=== PATIENT | female | born 1945 ===

== ENCOUNTER 2016-03-15 11:38 | Inpatient (IN) | payer OTHER ==
[2016-03-22] MEDS ORDERED: traZODone 50 MG TAB PO PRN (16:07)
[2016-03-22] MEDS ORDERED: BISACODYL 10 MG SUPP PR PRN (16:07)
[2016-03-22] MEDS ORDERED: oxyCODONE IR 5 MG TAB PO PRN (16:07)
[2016-03-22] MEDS: PHENAZOPYRIDINE HCL 100 MG TAB PO SCH (18:49)
--- NOTE | 2016-03-22 19:06 | PDOREHIP ---
Admission [facility] - Admission - 3 Day Assessment Period Admission Date/Day 1: 03/22/16 Day 2: 03/23/16 Day 3: 03/24/16 - Active Diagnoses Comorbidities and Co-existing Conditions at Admission: 50380. None of the Above - Skin Conditions Unhealed Pressure Ulcer (1 or more/Stage 1 or >)-Admission: 0. No
--- NOTE | 2016-03-22 19:25 | GHP ---
[f rep st] HISTORY AND PHYSICAL HISTORY AND PHYSICAL, POST ADMISSION PHYSICIAN EVALUATION AND TREATMENT PLAN DATE OF ADMISSION: 03/22/2016 REFERRING PHYSICIAN: Dr. Raymond DATE OF EVALUATION: 03/22/2016 TIME OF EVALUATION: 1615. REFERRING FACILITY: [facility]. CONSULTING PHYSICIANS: She was seen by Neurology, Physical Medicine Rehabilitation, nephrology and Oncology. 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 IMPAIRMENT GROUP: 3.4. ETIOLOGIC DIAGNOSIS: Guillain-[place] syndrome. DATE OF ONSET: 03/10/2016. HISTORY OF PRESENT ILLNESS: Mrs. Bucio developed progressive weakness of the extremities following a likely viral syndrome in February with upper respiratory symptoms and diarrhea. She presented to [facility] with numbness, weakness and unsteadiness; cardiac and pulmonary evaluation was negative and she was sent home. Symptoms progressed, and she went to [facility] where she received 5 doses of IVIG from March 11 through March 15, and reports that she has had gradual improvement in her strength and in her sensation. Her hospital stay was complicated by the finding of a spiculated left upper lobe lung mass. She had a biopsy done by Interventional Radiology, and the pathology result is adenocarcinoma. This is not felt to be a likely cause of a paraneoplastic polyradiculoneuropathy. 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 She had a small pneumothorax after the lung biopsy , but this resolved. She developed hyponatremia and had a diagnosis of syndrome of inappropriate ADH secretion which has resolved fluid restriction, initially was 1 L per day and then it was liberalized to 1.25 L per day and on her discharge orders it has 1.25 to 1.5 L per day. As she was immobilized and unable to make transfers initially, she had a urinary catheter and she developed a catheter-associated urinary tract infection with MRSA growing in the culture. She was initially on nitrofurantoin , but this has been changed to doxycycline. She has a history of hypertension. Her antihypertensive of lisinopril was increased from 20 mg to 40 mg per day and amlodipine was added eventually to 10 mg per day during her hospitalization. LABORATORY AND IMAGING STUDIES: Done during her hospitalization included imaging to evaluate for a paraneoplastic syndrome. Other than the nodule in her lung, imaging was normal including MRI of the brain and spinal cord, and CT of the chest and abdomen and pelvis. 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 Her renal function was otherwise within normal limits. PRECAUTIONS: She is a fall risk. ACTIVE COMORBIDITIES: 1. She has no active tier 1 or tier 2 comorbidities. 2. She has the tier 3 comorbidity of MRSA, though it was a urinary tract infection and not septicemia. PAST MEDICAL HISTORY: 1. Hypertension. 2. Dyslipidemia. PAST SURGICAL HISTORY: She has had foot surgery, and she has had vein stripping. PRE-HOSPITAL MEDICATIONS: 1. Lisinopril 20 mg p.o. daily. 2. Lovastatin 20 mg p.o. q.h.s. ADMISSION MEDICATIONS: 1. Trazodone 50 mg p.o. q.h.s. 2. Oxycodone 5 mg p.o. q.6 hours p.r.n. 3. Docusate sodium 100 mg p.o. b.i.d. p.r.n. 4. Cyclobenzaprine 10 mg p.o. t.i.d. p.r.n. 5. Bisacodyl 10 mg [place] daily p.r.n. 6. Phenazopyridine 100 mg p.o. t.i.d. after meals. 7. Melatonin 9 mg p.o. q.h.s. 8. Lovastatin 20 mg p.o. q.h.s. 9. Lisinopril 40 mg p.o. daily. 10. Lidocaine patch to left shoulder daily. 11. Amlodipine 10 mg p.o. daily. 12. Doxycycline 100 mg p.o. daily. ALLERGIES: Listed to penicillins and sulfonamide antibiotics. FAMILY HISTORY: On her mother's side is notable for longevity, her mother at 94. Her father had alcoholism and in his 60s. PSYCHOSOCIAL HISTORY: She is . She lives with her in a trilevel house. She has 3 children who live locally and with whom she has a close relationship. 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 She is a lifelong nonsmoker and nondrinker, though she has had exposure to secondhand smoke. REVIEW OF SYSTEMS: She denies cough, dyspnea, difficulty breathing or difficulty swallowing. She has no vision changes. She reports very little strength in her legs, saying that they are "like rubber" though strength has been returning. She has better upper extremity strength, but her arms are weak. She had lack of sensation from her knees down, but sensation has recovered. She has reduced sensation over the feet and distal lower legs, and she reports numbness on the bottoms of her feet. She reports left shoulder pain , otherwise, she denies being in pain. She denies palpitations. She has had some diarrhea; this was preceded by constipation which was resolved with laxatives. She had dysuria after the catheter was withdrawn, but no longer has dysuria. She denies fevers or chills. She denies joint pain or swelling. She denies skin rash or skin breakdown. Otherwise, a 10-point review of systems of systems is negative. PHYSICAL EXAM: VITAL SIGNS: Not yet recorded in the chart. Her weight is 78.5 kg for a body mass index of 27.1. GENERAL: This is a well-nourished and well-developed overweight woman who appears her chronologic age, cooperative and in no acute distress. HEENT: Extraocular movements are intact. Pupils are equal, round, and reactive to light and accommodation. Mucous membranes are moist. Dentition is in good condition. NECK: Supple. HEART: Regular rate and rhythm with no murmurs, rubs or gallops. LUNGS: Clear to auscultation bilaterally. ABDOMEN: Soft, nontender, nondistended with normoactive bowel sounds and no hepatosplenomegaly. EXTREMITIES: There is no cyanosis, clubbing or edema. Radial and dorsalis pedis pulses are 2+ bilaterally. NEUROLOGIC: She is alert and oriented x3. Cranial nerves 2-12 are grossly intact. In terms of motor strength, her shoulder shrug is 5/5. Her biceps are 3 to 4/5. Her triceps are 2 to 3/5. Her hip flexors are 4/5. Her quadriceps extension is 3/5 on the left and 2/5 on the right. Her hamstrings are 2/5 bilaterally. She has preserved core strength and is able to arise from supine to seated with minimal assistance. Regarding sensation, it is intact to light touch, but reduced in her lower legs and absent on the bottoms of her feet. CURRENT LEVEL OF FUNCTION: Per the preadmission screen regarding diet, feeding and swallowing, she was tolerating a regular diet. For grooming, she could brush her teeth with set up and a foam handle on the toothbrush. For bathing and dressing, she required assistance. For toileting, she required minimal to maximal assistance of one person. For bladder, she had a Jiménez catheter at the time of her evaluation. Regarding bowel, she was noted to be at risk for constipation. For bed mobility, she needed minimal assistance. For transfers, moderate to maximal assistance of 2 people using a Prachi Stedy Device to transfer from bed to chair. Without the Prachi Stedy, she needed total assistance to prevent knee buckling. For balance, she needed maximal assistance for standing. Endurance was noted to be fair to good. IMPRESSION: Mrs. Bucio is a 71-year-old woman who had progressive weakness of the extremities and loss of sensation following a viral infection involving upper respiratory symptoms and diarrhea in February. Initial evaluation at [facility] was negative for cardiac or pulmonary disease, and she was sent home. Her condition progressed, and she presented at the 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 Evaluation for a possible paraneoplastic etiology revealed a spiculated lung nodule which has been biopsied and revealed adenocarcinoma. Hospital complications included a pneumothorax caused by the lung biopsy and catheter-associated urinary tract infection with MRSA. She had inadequate control of hypertension and amlodipine was added and lisinopril titrated to achieve better blood pressure control. She had SIADH of unclear etiology, which has resolved with fluid restriction. She remains on a fluid restriction. She is appropriate for inpatient rehabilitation as she has been regaining strength. She will benefit from physical and occupational therapy to optimize her mobility and activities of daily living. Additionally, she will require close medical management by the physician for changes in neurological and respiratory function, treatment of urinary tract infection, prevention of DVT or pulmonary embolus; and she will require specialized nursing care due to risk for skin issues, bowel and bladder management, medication education and fall risk. Her goal is to return home with her family and supportive services. For a safe discharge, it is anticipated she will achieve modified independence for eating and grooming, set up and minimal assistance for dressing, and standby assist for bed mobility. She may require contact guard for transfers, and ambulation for short distances. It is anticipated that she will use a wheelchair for her primary means of mobility, and she will require assistance for household management, meal preparation and shopping. She will have therapy with Physical Therapy and Occupational Therapy on a modified schedule for 60-90 minutes for each discipline per day, on 5-7 days a week, do a total 15 hours a week of therapy or more. Her expected duration of stay is 14-21 days. It is expected that upon discharge she will continue to benefit from home health services, including nursing, occupational therapy and physical therapy. ASSESSMENT AND PLAN: 1. 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 Status post IVIG. She is recovering her strength, but is still quite debilitated. Physical therapy and occupational therapy to optimize mobility and activities of daily living. 2. Methicillin-resistant Staphylococcus aureus urinary tract infection. Will continue antibiotics as ordered out of the hospital for a total of 10 days or through 03/30/2016. Observe for signs or symptoms of continuing infection. It is of note that the urine culture showed the MRSA to also be susceptible to nitrofurantoin. She has normal renal function, this might be a better choice. If she shows signs of not resolving the infection, she will be switched to nitrofurantoin. 3. Hyponatremia, on fluid restriction. Will repeat a BMP in the morning. 4. Hypertension. Continue her antihypertensive medications and follow her blood pressure. 5. Dyslipidemia. Continue her statin therapy. 6. Left shoulder pain. Unclear etiology. May be related to denervation. I will continue lidocaine patches. Will continue oxycodone as ordered at the hospital. Will add acetaminophen. Cyclobenzaprine has been prescribed, unclear what role that plays in her symptom management. 7. Insomnia. She has been treated with melatonin which has been titrated from 3 mg to 9 mg. Additionally, she has had the addition of trazodone. She reports continued poor sleep. She may sleep better simply by being out of the hospital and in the rehabilitation unit where she will be disturbed less at night. 8. DVT prophylaxis will be continued with enoxaparin until her mobility increases. 9. CODE STATUS was discussed with the patient and her , and they desire to continue full resuscitation should she be found unconscious with no pulse and no breathing. 10. Followup is currently scheduled with Oncology at the [facility] on 04/01/2016. However, she and her reported that she follows up 1 or 2 weeks later, this would be acceptable to the oncology team. /[id number]/MODL MTDD
[2016-03-22] MEDS: ACETAMINOPHEN 650 MG/20.3 ML UDCUP PO PRN (20:28)
[2016-03-22] MEDS: DOXYCYCLINE HYCLATE 100 MG CAP/TAB PO SCH (20:32)
[2016-03-22] MEDS: MELATONIN 3 MG TAB PO SCH (20:34)
[2016-03-22] MEDS ORDERED: NON-FORMULARY NEW DRUG (Lovastatin [Lovastatin] 20 MG) PO SCH (21:00)
[2016-03-22] MEDS ORDERED: NON-FORMULARY NEW DRUG (Doxycycline Hyclate [Doxycycline Hyclate] 100 MG) PO SCH (21:00)
[2016-03-23] MEDS: ACETAMINOPHEN 650 MG/20.3 ML UDCUP PO PRN ×2 (04:01→21:03)
[2016-03-23 08:50] LABS: % IMMATURE GRANULYOCYTES 0.5 % (0.0-1.1); ABSOLUTE IMMATURE GRANULOCYTES 0.04 10^3/uL (0.00-0.10); ADD DIFF? NO; ADD MORPH? NO; ADD SCAN? NO; ATYPICAL LYMPHOCYTE FLAG 10 (0-99); FRAGMENT RBC FLAG 0 (0-99); HEMATOCRIT 38.2 % (38.0-47.0); LEFT SHIFT FLG 0 (0-99); LIPEMIA HEMOLYSIS FLAG 90 (0-99); MEAN CELL HEMOGLOBIN 31.5 pg (27.9-34.1); MEAN CELL VOLUME 92.5 fL (81.5-99.8); MEAN PLATELET VOLUME 8.6 fL (8.7-11.7); PLATELET CLUMPS FLAG 0 (0-99); PLATELET COUNT 308 10^3/uL (150-400); RED BLOOD CELL COUNT 4.13 10^6/uL (4.18-5.33); RED CELL DISTRIBUTION WIDTH 13.2 % (11.5-15.2)
[2016-03-23 09:03] LABS: ALANINE AMINOTRANSFERASE 69 IU/L (9-52); ALKALINE PHOSPHATASE 79 IU/L (38-126); ANION GAP 9 mEq/L (8-16); ASPARTATE AMINOTRANSFERASE 38 IU/L (14-46); BILIRUBIN,TOTAL 0.7 mg/dL (0.1-1.4); CALCIUM 8.3 mg/dL (8.5-10.4); CARBON DIOXIDE 25 mEq/l (22-31); CHLORIDE 104 mEq/L (97-110); CREATININE 0.5 mg/dL (0.6-1.0); GLOMERULAR FILTRATION RATE > 60; GLUCOSE 95 mg/dL (70-100); POTASSIUM 4.4 mEq/L (3.5-5.2); SODIUM 138 mEq/L (134-144); TOTAL PROTEIN 7.4 g/dL (6.3-8.2)
[2016-03-23] MEDS: LIDOCAINE 5% 1 EA PATCH TD SCH (09:49)
[2016-03-23] MEDS: PHENAZOPYRIDINE HCL 100 MG TAB PO SCH ×3 (09:50→18:26)
[2016-03-23] MEDS: DOXYCYCLINE HYCLATE 100 MG CAP/TAB PO SCH ×2 (09:50→21:03)
[2016-03-23] MEDS: PRAVASTATIN SODIUM 20 MG TAB PO SCH (09:51)
[2016-03-23] MEDS: ENOXAPARIN 40 MG/0.4 ML SYR SC SCH (09:51)
[2016-03-23] MEDS: LISINOPRIL 20 MG TAB PO SCH (09:51)
--- NOTE | 2016-03-23 12:57 | SOAPPROG ---
SOAP Progress Note Assessment/Plan: Assessment: 71yo female with GBS: * Debility 2/2 GBS: stable s/p IVIG, initiate multi-disp eval and tx * MRSZ UTI: Cont ABX's through 03/30. Cont isolation precautions * Hyponatremia: 138 this morning, will loosen fluid restrictions (1500ml to 2000ml) and recheck. * Nutrition: Albumin low at 3.0, monitor intake, supplements as needed. * HTN: Stable, cont current meds * Dyslipidemia: cont current meds * L shoulder Pain: status quo, trial of alternative modalities. * Insomnia: * DVT PPX: Cont enoxaparin. Plan: Initiate therapies, Initial staffing to follow 03/23/16 12:59 Subjective: Feeling stronger No new problems or C/O's No F/C/CP/SOB/N/V/D/C slept poorly, couldn't get comfortable Objective: Vital Signs Temp Pulse Resp BP Pulse Ox 37.0 C 120 H 16 124/78 H 93 03/23/16 07:03 03/23/16 11:00 03/23/16 07:03 03/23/16 11:00 03/23/16 07:03 Laboratory Results 03/23/16 07:30 03/23/16 07:30 03/22/16 03/23/16 03/24/16 05:59 05:59 05:59 Intake Total 990 730 Output Total 1200 675 Balance -210 55 Physical Exam - Physical Exam General Appearance: alert, no apparent distress Neck: supple Respiratory: lungs clear Cardiac/Chest: regular rate, rhythm Skin: normal color, warm/dry Extremities: No pedal edema, No calf tenderness Neuro/Psych: alert, normal mood/affect, oriented x 3, motor weakness, No cognition abnormalities ICD10 Worksheet Patient Problems: Problems Problem Status Diagnosed Adenocarcinoma of lung Acute Hyponatremia Acute Inflammatory polyradiculoneuropathy Acute MRSA (methicillin resistant Staphylococcus aureus) Acute UTI (urinary tract infection) Acute
[2016-03-23] MEDS ORDERED: ZOLPIDEM TARTRATE 5 MG TAB PO SCH (21:00)
[2016-03-23] MEDS: MELATONIN 3 MG TAB PO SCH (21:03)
[2016-03-24] MEDS: ACETAMINOPHEN 650 MG/20.3 ML UDCUP PO PRN (02:17)
[2016-03-24] MEDS: CYCLOBENZAPRINE 10 MG TAB PO PRN (02:17)
[2016-03-24] MEDS: LISINOPRIL 20 MG TAB PO SCH (09:38)
[2016-03-24] MEDS: DOXYCYCLINE HYCLATE 100 MG CAP/TAB PO SCH ×2 (09:38→20:05)
[2016-03-24] MEDS: PRAVASTATIN SODIUM 20 MG TAB PO SCH (09:40)
[2016-03-24] MEDS: PHENAZOPYRIDINE HCL 100 MG TAB PO SCH ×3 (09:40→20:04)
[2016-03-24] MEDS: LIDOCAINE 5% 1 EA PATCH TD SCH (09:40)
[2016-03-24] MEDS: ENOXAPARIN 40 MG/0.4 ML SYR SC SCH (09:40)
--- NOTE | 2016-03-24 16:58 | SOAPPROG ---
SOAP Progress Note Assessment/Plan: Assessment: 71yo female with GBS: * Debility 2/2 GBS: Improving s/p IVIG, cont multi-disp eval and tx * MRSA UTI: Cont ABX's through 03/30. Cont isolation precautions. NO active Sx /SX of UTI * Urinary retention: Improving. Voided 550cc with 18 cc PVR this am. * N Bowel: bowel incontinence 2/2 diminished sensation. * Hyponatremia: 138 03/23, loosened fluid restrictions (1500ml to 2000ml) 03/23. will recheck Na 03/25. * Nutrition: Albumin low at 3.0, monitor intake, supplements as needed. * HTN: Had syncopal episode this am, responded by being place back into bed. Pt herself declined the 40 mg Lisinipril and instead took her routine 20 mg dose. Will decrease her BP meds back to pre hospital doses, including reducing lisinopril 40 to 20 mg/day. * Dyslipidemia: cont current meds * L shoulder Pain: status quo, trial of alternative modalities. * Insomnia: Trial of low dose ambien helpful, but only for 4 hours, will try 10 mg dose. * DVT PPX: Cont enoxaparin. Plan: Cont therapies, Initial staffing to follow 03/24/16 16:54 Subjective: Resting comfortably Given further education regarding Dx and Px. No F/C/CP/SOB/N/V/D/C No urinary frequency/urgency/pain Objective: Vital Signs Temp Pulse Resp BP Pulse Ox 36.9 C 100 18 108/66 92 03/24/16 08:15 03/24/16 08:15 03/24/16 08:15 03/24/16 09:38 03/24/16 08:15 Laboratory Results 03/23/16 07:30 03/23/16 07:30 03/23/16 03/24/16 03/25/16 05:59 05:59 05:59 Intake Total 990 2130 Output Total 1200 1525 Balance -210 605 Physical Exam - Physical Exam General Appearance: alert, no apparent distress Neck: supple Respiratory: lungs clear Cardiac/Chest: regular rate, rhythm Abdomen: normal bowel sounds, soft Skin: normal color, warm/dry, No rash Extremities: No pedal edema, No calf tenderness Neuro/Psych: alert, normal mood/affect, oriented x 3, abnormal gait, motor weakness (distal extremities, fairly symmetrically), sensory deficit ( diminished JPS), other (no acute changes), No cognition abnormalities, No speech abnormalities ICD10 Worksheet Patient Problems: Problems Problem Status Diagnosed Adenocarcinoma of lung Acute Hyponatremia Acute Inflammatory polyradiculoneuropathy Acute MRSA (methicillin resistant Staphylococcus aureus) Acute UTI (urinary tract infection) Acute
[2016-03-24] MEDS: MELATONIN 3 MG TAB PO SCH (20:05)
[2016-03-24] MEDS: ZOLPIDEM TARTRATE 5 MG TAB PO SCH (22:24)
[2016-03-25 09:28] LABS: ANION GAP 12 mEq/L (8-16); CALCIUM 8.4 mg/dL (8.5-10.4); CARBON DIOXIDE 23 mEq/l (22-31); CHLORIDE 105 mEq/L (97-110); CREATININE 0.5 mg/dL (0.6-1.0); GLOMERULAR FILTRATION RATE > 60; GLUCOSE 83 mg/dL (70-100); POTASSIUM 4.6 mEq/L (3.5-5.2); SODIUM 140 mEq/L (134-144)
[2016-03-25] MEDS: PHENAZOPYRIDINE HCL 100 MG TAB PO SCH ×3 (09:45→18:21)
[2016-03-25] MEDS: PRAVASTATIN SODIUM 20 MG TAB PO SCH (09:45)
[2016-03-25] MEDS: LIDOCAINE 5% 1 EA PATCH TD SCH (09:45)
[2016-03-25] MEDS: DOXYCYCLINE HYCLATE 100 MG CAP/TAB PO SCH ×2 (09:46→21:01)
[2016-03-25] MEDS: ENOXAPARIN 40 MG/0.4 ML SYR SC SCH (09:46)
[2016-03-25] MEDS: LISINOPRIL 20 MG TAB PO SCH (09:46)
--- NOTE | 2016-03-25 13:07 | SOAPPROG ---
SOAP Progress Note Assessment/Plan: Assessment/ plan: 71yo female with GBS: * Debility 2/2 GBS: Impaired mobility and self care. Improving s/p IVIG, cont multi-disp eval and tx. PT for impaired mobility, OT for impaired self care. Cognitively with no new concerns. Team meeting today (documented separately) occurred, DC date extended slightly as she will need to ascend stairs to reach the living floor of her home. No barriers to participation except for orthostatic hypotension. Amlodipine (new medication) held this AM, to be stopped. Pt given handout on GBS and encouraged to follow up with questions. * MRSA UTI: Cont ABX's through 03/30. Cont isolation precautions. No active Sx /SX of UTI * Urinary retention: Was improving, however had PVR of 300+ overnight. Continue to monitor as symptoms improve. Plan to continue voiding trial through tomorrow and re-evaluate. * N Bowel: bowel incontinence 2/2 diminished sensation, continue to monitor and schedule bowel program. * Hyponatremia: 138 03/23, loosened fluid restrictions (1500ml to 2000ml) 03/23. Improved on 03/25 to 140. Given the concerns of orthostatic hypotension, plan to DC the fluid restriction and recheck Na on 03/27. * Nutrition: Albumin low at 3.0, monitor intake, supplements as needed. * HTN: Will continue the home dose of lisinopril but stop the amlodipine (new medication). Will check orthostatic vital signs. * Dyslipidemia: cont current meds * L shoulder Pain: status quo, trial of alternative modalities. * Insomnia: Slept well on 10 mg dose of ambien, plan to continue for now. * DVT PPX: Cont enoxaparin until ambulatory or DC. * Lung nodule: to follow up with oncology on dc. Monitor clinically. * Adjustment to disabilities: pt notes some struggling with emotions, but not impairing her ability to participate in therapies. She is engaging with SW on the issue, and feels supported. no SI. 03/25/16 12:59 03/25/16 13:07 03/25/16 13:11 Subjective: No acute events overnight. She had increased PVR after voiding, had straight cath. Overall she feels her neurological status is similar, not much improvement in upper limb strength or sensation over the past few days, but no decrement either. Lower limbs seem to be improving. However, she notes great improvements since diagnosis, especially in strength. She is struggling with emotions around adjustment to her current disabilities, wants to regain her active lifestyle. Reported to nursing some ongoing orthostasis and reported that she was not on amlodipine as an outpatient. Slept well on ambien, no pain, no neurological worsening of strength or sensation. Reports that her family is supportive. Objective: Vital Signs Temp Pulse Resp BP Pulse Ox 37.0 C 87 18 112/77 91 L 03/25/16 08:00 03/25/16 08:00 03/25/16 08:00 03/25/16 09:46 03/25/16 08:00 Laboratory Results 03/23/16 07:30 03/25/16 05:10 03/24/16 03/25/16 03/26/16 05:59 05:59 05:59 Intake Total 2130 200 620 Output Total 1525 875 450 Balance 605 -675 170 - Time Spent With Patient Time Spent With Patient: 15 min - Pending Discharge Pending Discharge Within 24 Hours: No Pending Discharge Within 48 Hours: No Physical Exam - Physical Exam General Appearance: alert, no apparent distress EENT: No scleral icterus (R), No scleral icterus (L), No photophobia Respiratory: normal breath sounds, No respiratory distress, No accessory muscle use, No stridor, No wheezing Cardiac/Chest: normal peripheral pulses, regular rate, rhythm, No edema, No bradycardia, No tachycardia Abdomen: non-tender, soft, No distended Skin: normal color, warm/dry Extremities: normal range of motion (upper limbs), No pedal edema, No swelling Neuro/Psych: alert, motor weakness (4/5 bilat symmetric FF, EF, SA. Not ambulated, in WC.), other (Normal affect, variable mood, no SI) ICD10 Worksheet Patient Problems: Problems Problem Status Diagnosed Adenocarcinoma of lung Acute Hyponatremia Acute Inflammatory polyradiculoneuropathy Acute MRSA (methicillin resistant Staphylococcus aureus) Acute UTI (urinary tract infection) Acute
[2016-03-25] MEDS: MELATONIN 3 MG TAB PO SCH (21:01)
[2016-03-25] MEDS: ZOLPIDEM TARTRATE 5 MG TAB PO SCH (22:26)
[2016-03-26] MEDS: ENOXAPARIN 40 MG/0.4 ML SYR SC SCH (08:42)
[2016-03-26] MEDS: LIDOCAINE 5% 1 EA PATCH TD SCH (08:42)
[2016-03-26] MEDS: DOXYCYCLINE HYCLATE 100 MG CAP/TAB PO SCH ×2 (08:42→22:50)
[2016-03-26] MEDS: PHENAZOPYRIDINE HCL 100 MG TAB PO SCH ×2 (08:42→15:39)
[2016-03-26] MEDS: PRAVASTATIN SODIUM 20 MG TAB PO SCH (08:43)
--- NOTE | 2016-03-26 14:07 | SOAPPROG ---
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 Improving s/p IVIG. Initial FIM 57 on 03/25/16. Continue multi-disp eval and tx. PT for impaired mobility, OT for impaired self care. Cognitively with no new concerns. Will need to ascend stairs to reach the living floor of her home. * Orthostatic hypotension. Amlodipine (new medication) stopped 03/25/16. * MRSA UTI: Cont ABX's through 03/30. Cont isolation precautions. No active Sx /SX of UTI * Urinary retention: Was improving, however had PVR of 300+ overnight. Continue to monitor as symptoms improve. Plan to continue voiding trial through tomorrow and re-evaluate. * N Bowel: bowel incontinence 2/2 diminished sensation, continue to monitor and schedule bowel program. * Hyponatremia: 138 03/23, loosened fluid restrictions (1500ml to 2000ml) 03/23. Improved on 03/25 to 140. Given the concerns of orthostatic hypotension, plan to DC the fluid restriction and recheck Na on 03/27. * Nutrition: Albumin low at 3.0, monitor intake, supplements as needed. * HTN: Will continue the home dose of lisinopril but stop the amlodipine (new medication). Will check orthostatic vital signs. * Dyslipidemia: cont current meds * L shoulder Pain: status quo, trial of alternative modalities. * Insomnia: Slept well on 10 mg dose of ambien, plan to continue for now. * DVT PPX: Cont enoxaparin until ambulatory or DC. * Lung nodule: to follow up with oncology on dc. Monitor clinically. * Adjustment to disabilities: pt notes some struggling with emotions, but not impairing her ability to participate in therapies. She is engaging with SW on the issue, and feels supported. no SI. Anticipated discharge home 04/15/16. 03/26/16 14:00 Objective: Vital Signs Temp Pulse Resp BP Pulse Ox 37 C 110 H 18 98/69 L 95 03/26/16 09:00 03/26/16 09:00 03/26/16 09:00 03/26/16 09:00 03/26/16 09:00 Laboratory Results 03/23/16 07:30 03/25/16 05:10 01/03/26/16 03/27/16 05:59 05:59 05:59 Intake Total 200 820 Output Total 872 7814 Balance -675 1102 ICD10 Worksheet Patient Problems: Problems Problem Status Diagnosed Adenocarcinoma of lung Acute Hyponatremia Acute Inflammatory polyradiculoneuropathy Acute MRSA (methicillin resistant Staphylococcus aureus) Acute UTI (urinary tract infection) Acute
[2016-03-26] MEDS: LISINOPRIL 20 MG TAB PO SCH (15:38)
[2016-03-26] MEDS: ZOLPIDEM TARTRATE 5 MG TAB PO SCH (22:50)
[2016-03-26] MEDS: MELATONIN 3 MG TAB PO SCH (22:50)
[2016-03-27] MEDS: DOXYCYCLINE HYCLATE 100 MG CAP/TAB PO SCH ×2 (09:26→22:41)
[2016-03-27] MEDS: LIDOCAINE 5% 1 EA PATCH TD SCH (09:26)
[2016-03-27] MEDS: PRAVASTATIN SODIUM 20 MG TAB PO SCH (09:26)
[2016-03-27] MEDS: ENOXAPARIN 40 MG/0.4 ML SYR SC SCH (09:26)
[2016-03-27] MEDS: LISINOPRIL 20 MG TAB PO SCH (11:01)
--- NOTE | 2016-03-27 11:16 | SOAPPROG ---
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 Improving s/p IVIG. Initial FIM 57 on 03/25/16. Continue multi-disp eval and tx. PT for impaired mobility, OT for impaired self care. Cognitively with no new concerns. Will need to ascend stairs to reach the living floor of her home. * Orthostatic hypotension. Amlodipine (new medication) stopped 03/25/16; lisinopril stopped 03/26/15. Unclear why hypotensive but normotensive off meds. Continue to monitor blood pressure. * MRSA UTI: Cont ABX's through 03/30. Cont isolation precautions. No active Sx /SX of UTI * Urinary retention: Voiding completely with assistance of nursing. * N Bowel: bowel incontinence 2/2 diminished sensation, continue to monitor and schedule bowel program. * Hyponatremia: resolved, no fluid restriction. * Nutrition: Albumin low at 3.0, monitor intake, supplements as needed. * Dyslipidemia: cont current meds * L shoulder Pain: status quo, trial of alternative modalities. * Insomnia: Slept well on 10 mg dose of ambien, plan to continue for now. * DVT PPX: Cont enoxaparin until ambulatory or DC. * Lung nodule: to follow up with oncology on dc. Monitor clinically. * Adjustment to disabilities: pt notes some struggling with emotions, but not impairing her ability to participate in therapies. She is engaging with SW on the issue, and feels supported. no SI. Anticipated discharge home 04/15/16. 03/27/16 11:16 Subjective: No complaints. Slept well with zolpidem. No pain, f/c, cough, dyspnea, n/v/c/ d. Objective: Vital Signs Temp Pulse Resp BP Pulse Ox 36.7 C 92 16 118/73 94 03/27/16 08:00 03/27/16 08:00 03/27/16 08:00 03/27/16 08:00 03/27/16 08:00 Laboratory Results 03/23/16 07:30 03/27/16 06:20 03/26/16 03/27/16 03/28/16 05:59 05:59 05:59 Intake Total 820 1240 Output Total 1925 1550 Balance -1105 -310 Physical Exam - Physical Exam General Appearance: WD/WN, alert, no apparent distress Respiratory: normal breath sounds, No crackles, No rhonchi, No wheezing Cardiac/Chest: regular rate, rhythm, No edema Skin: normal color, warm/dry Neuro/Psych: alert, normal mood/affect, oriented x 3, motor weakness ICD10 Worksheet Patient Problems: Problems Problem Status Diagnosed Adenocarcinoma of lung Acute Hyponatremia Acute Inflammatory polyradiculoneuropathy Acute MRSA (methicillin resistant Staphylococcus aureus) Acute UTI (urinary tract infection) Acute
[2016-03-27] MEDS: ACETAMINOPHEN 650 MG/20.3 ML UDCUP PO PRN (17:21)
[2016-03-27] MEDS: ZOLPIDEM TARTRATE 5 MG TAB PO SCH (22:40)
[2016-03-27] MEDS: MELATONIN 3 MG TAB PO SCH (22:41)
[2016-03-28] MEDS: PRAVASTATIN SODIUM 20 MG TAB PO SCH (09:00)
[2016-03-28] MEDS: DOXYCYCLINE HYCLATE 100 MG CAP/TAB PO SCH ×2 (09:00→22:32)
[2016-03-28] MEDS: ENOXAPARIN 40 MG/0.4 ML SYR SC SCH (09:00)
[2016-03-28] MEDS: LIDOCAINE 5% 1 EA PATCH TD SCH (09:01)
--- NOTE | 2016-03-28 17:18 | SOAPPROG ---
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 Improving s/p IVIG. Initial FIM 57 on 03/25/16. Continue multi-disp eval and tx. PT for impaired mobility, OT for impaired self care. Cognitively with no new concerns. Will need to ascend stairs to reach the living floor of her home. * HTN/Orthostatic hypotension. Amlodipine (new medication) stopped 03/25/16; lisinopril stopped 03/26/15. No longer orthostatic and BP increasing since since meds were discontinued. If she becomes hypertensive (>140/90) will restart lisinopril. * MRSA UTI: Cont ABX's through 03/30. Cont isolation precautions. No active Sx /SX of UTI * Urinary retention: Voiding completely with assistance of nursing. * N Bowel: incontinence has resolved. * Hyponatremia: resolved, no fluid restriction. * Nutrition: Albumin low at 3.0, monitor intake, supplements as needed. * Dyslipidemia: cont current meds * L shoulder Pain: status quo, trial of alternative modalities. * Insomnia: Slept well on 10 mg dose of ambien, plan to continue for now. * DVT PPX: Cont enoxaparin until ambulatory or DC. * Lung nodule: to follow up with oncology on dc. Monitor clinically. * Adjustment to disabilities: pt notes some struggling with emotions, but not impairing her ability to participate in therapies. She is engaging with SW on the issue, and feels supported. no SI. Anticipated discharge home 04/15/16. 03/28/16 17:16 Subjective: No complaints other than being tired from a full day of therapies. PT reports she's tolerating the full schedule and modified schedule can be stopped. Denies urinary symptoms and is voiding completely. Small bowel movement today. Objective: Vital Signs Temp Pulse Resp BP Pulse Ox 36.6 C 99 16 122/86 H 97 03/28/16 08:00 03/28/16 10:49 03/28/16 08:00 03/28/16 10:49 03/28/16 08:00 Laboratory Results 03/23/16 07:30 03/27/16 06:20 03/27/16 03/28/16 03/29/16 05:59 05:59 05:59 Intake Total 1240 640 Output Total 1725 149 5500 Balance -310 240 -1150 Physical Exam - Physical Exam General Appearance: WD/WN, alert, no apparent distress Respiratory: normal breath sounds, No crackles, No rhonchi, No wheezing Cardiac/Chest: regular rate, rhythm, No edema Neuro/Psych: alert, normal mood/affect, oriented x 3 ICD10 Worksheet Patient Problems: Problems Problem Status Diagnosed Adenocarcinoma of lung Acute Hyponatremia Acute Inflammatory polyradiculoneuropathy Acute MRSA (methicillin resistant Staphylococcus aureus) Acute UTI (urinary tract infection) Acute
[2016-03-28] MEDS: MELATONIN 3 MG TAB PO SCH (22:31)
[2016-03-28] MEDS: ZOLPIDEM TARTRATE 5 MG TAB PO SCH (22:33)
[2016-03-28] MEDS: PATCH REMOVAL 1 EA PATCH TD SCH (22:34)
[2016-03-29] MEDS: LIDOCAINE 5% 1 EA PATCH TD SCH ×2 (09:17→22:51)
[2016-03-29] MEDS: DOXYCYCLINE HYCLATE 100 MG CAP/TAB PO SCH ×2 (09:18→21:15)
[2016-03-29] MEDS: ENOXAPARIN 40 MG/0.4 ML SYR SC SCH (09:18)
[2016-03-29] MEDS: PRAVASTATIN SODIUM 20 MG TAB PO SCH (09:18)
--- NOTE | 2016-03-29 16:49 | SOAPPROG ---
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 Improving s/p IVIG. Initial FIM 57 on 03/25/16. Continue multi-disp eval and tx. PT for impaired mobility, OT for impaired self care. Cognitively with no new concerns. * HTN/Orthostatic hypotension. Amlodipine (new medication) stopped 03/25/16; lisinopril stopped 03/26/15. No longer orthostatic and BP increasing since since meds were discontinued. If she becomes hypertensive (>140/90) will restart lisinopril. * MRSA UTI: Cont ABX's through 03/30. Cont isolation precautions. No active Sx /SX of UTI * Urinary retention: Resolved, voiding completely. * N Bowel: incontinence has resolved. * Hyponatremia: resolved, no fluid restriction. Recheck BMP in AM 03/30/16. * Nutrition: Albumin low at 3.0, monitor intake, supplements as needed. * Dyslipidemia: cont current meds * L shoulder Pain: status quo, trial of alternative modalities. * Insomnia: Using occasional zolpidem. * DVT PPX: Cont enoxaparin until ambulatory or DC. * Lung nodule: to follow up with oncology on dc. Monitor clinically. * Adjustment to disabilities: pt notes some struggling with emotions, but not impairing her ability to participate in therapies. She is engaging with SW on the issue, and feels supported. no SI. Will need to ascend stairs to reach the living floor of her home. Anticipated discharge home 04/15/16. 03/29/16 16:46 Subjective: No complaints. Says she worked hard today in therapies and feels tired. No f/c , cough/dyspnea, n/v/c/d. Objective: Vital Signs Temp Pulse Resp BP Pulse Ox 36.7 C 87 15 130/82 H 94 03/29/16 08:43 03/29/16 08:43 03/29/16 08:43 03/29/16 08:43 03/29/16 08:43 Laboratory Results 03/23/16 07:30 03/27/16 06:20 03/28/16 03/29/16 03/30/16 05:59 05:59 05:59 Intake Total 640 2200 Output Total 400 1950 1075 Balance 240 250 -1075 Physical Exam - Physical Exam General Appearance: WD/WN, alert, no apparent distress Respiratory: No respiratory distress, No accessory muscle use Skin: normal color, warm/dry Neuro/Psych: alert, normal mood/affect, oriented x 3 ICD10 Worksheet Patient Problems: Problems Problem Status Diagnosed Adenocarcinoma of lung Acute Hyponatremia Acute Inflammatory polyradiculoneuropathy Acute MRSA (methicillin resistant Staphylococcus aureus) Acute UTI (urinary tract infection) Acute
[2016-03-29] MEDS: MELATONIN 3 MG TAB PO SCH (22:50)
[2016-03-29] MEDS: ZOLPIDEM TARTRATE 5 MG TAB PO SCH (22:50)
[2016-03-29] MEDS: PATCH REMOVAL 1 EA PATCH TD SCH (22:52)
[2016-03-30 09:04] LABS: ANION GAP 11 mEq/L (8-16); CALCIUM 8.7 mg/dL (8.5-10.4); CARBON DIOXIDE 23 mEq/l (22-31); CHLORIDE 105 mEq/L (97-110); CREATININE 0.5 mg/dL (0.6-1.0); GLOMERULAR FILTRATION RATE > 60; GLUCOSE 85 mg/dL (70-100); POTASSIUM 4.6 mEq/L (3.5-5.2); SODIUM 139 mEq/L (134-144)
[2016-03-30] MEDS: DOXYCYCLINE HYCLATE 100 MG CAP/TAB PO SCH (09:17)
[2016-03-30] MEDS: LIDOCAINE 5% 1 EA PATCH TD SCH (09:17)
[2016-03-30] MEDS: ENOXAPARIN 40 MG/0.4 ML SYR SC SCH (09:17)
[2016-03-30] MEDS: PRAVASTATIN SODIUM 20 MG TAB PO SCH (09:20)
--- NOTE | 2016-03-30 10:21 | SOAPPROG ---
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 Improving s/p IVIG. Initial FIM 57 on 03/25/16. Continue multi-disp eval and tx. PT for impaired mobility, OT for impaired self care. Cognitively with no new concerns. * HTN/Orthostatic hypotension. Amlodipine (new medication) stopped 03/25/16; lisinopril stopped 03/26/15. No longer orthostatic and BP increasing since since meds were discontinued. If she becomes hypertensive (>140/90) will restart lisinopril. * MRSA UTI: Cont ABX's through 03/30. Cont isolation precautions. No active Sx /SX of UTI * Urinary retention: Resolved, voiding completely. * N Bowel: incontinence has resolved. * Hyponatremia: resolved, no fluid restriction. Recheck BMP in AM 03/30/16. * Nutrition: Albumin low at 3.0, monitor intake, supplements as needed. * Dyslipidemia: cont current meds * L shoulder Pain: status quo, trial of alternative modalities. * Insomnia: Using occasional zolpidem. * DVT PPX: Cont enoxaparin until ambulatory or DC. * Lung nodule: to follow up with oncology on dc. Monitor clinically. * Adjustment to disabilities: pt notes some struggling with emotions, but not impairing her ability to participate in therapies. She is engaging with SW on the issue, and feels supported. no SI. Will need to ascend stairs to reach the living floor of her home. Anticipated discharge home 04/15/16. Plan: 03/30/16 10:20 03/30/16 10:24 Subjective: She reports numbness and tingling in her hands and feet. She reports her strength is returning. She is on fluid restrictions. She is standing in PT. Deneis SOB. Objective: Vital Signs Temp Pulse Resp BP Pulse Ox 36.8 C 88 16 123/80 H 94 03/30/16 06:23 03/30/16 06:23 03/30/16 06:23 03/30/16 06:23 03/30/16 06:23 Laboratory Results 03/23/16 07:30 03/30/16 05:15 03/29/16 03/30/16 03/31/16 05:59 05:59 05:59 Intake Total 2200 150 Output Total 1949 1450 Balance 250 -1300 Physical Exam - Physical Exam General Appearance: WD/WN, alert, no apparent distress EENT: PERRL/EOMI Respiratory: lungs clear, No crackles, No wheezing Abdomen: normal bowel sounds, non-tender, soft, No rebound Skin: other (GRADE 1 DECUB LUMBOSACRAL REGION.) Neuro/Psych: motor weakness (LE>UE.), No aphasia ICD10 Worksheet Patient Problems: Problems Problem Status Diagnosed Adenocarcinoma of lung Acute Hyponatremia Acute Inflammatory polyradiculoneuropathy Acute MRSA (methicillin resistant Staphylococcus aureus) Acute UTI (urinary tract infection) Acute
[2016-03-30] MEDS: PATCH REMOVAL 1 EA PATCH TD SCH (22:00)
[2016-03-30] MEDS: CYCLOBENZAPRINE 10 MG TAB PO PRN (22:06)
[2016-03-30] MEDS: MELATONIN 3 MG TAB PO SCH (22:06)
[2016-03-30] MEDS: ZOLPIDEM TARTRATE 5 MG TAB PO SCH (22:06)
[2016-03-31] MEDS: ACETAMINOPHEN 650 MG/20.3 ML UDCUP PO PRN (04:02)
[2016-03-31] MEDS: oxyCODONE IR 5 MG TAB PO PRN ×2 (04:40→22:01)
[2016-03-31] MEDS: ENOXAPARIN 40 MG/0.4 ML SYR SC SCH (07:57)
[2016-03-31] MEDS: PRAVASTATIN SODIUM 20 MG TAB PO SCH (07:58)
[2016-03-31] MEDS: LIDOCAINE 5% 1 EA PATCH TD SCH (07:58)
--- NOTE | 2016-03-31 12:04 | SOAPPROG ---
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 Improving s/p IVIG. Initial FIM 57 on 03/25/16. Continue multi-disp eval and tx. PT for impaired mobility, OT for impaired self care. Cognitively with no new concerns. * Lower extremity pain- possibly neuropathic, secondary to GBS. She was given an extra 5mg of oxycodone last pm for c/o severe LE pain. She currently does not report sxs of neuropathic pain. May consider beginning Gabapentin if neuropathic pain continues. * HTN/Orthostatic hypotension. Pulse while standing in standing frame was 108 and regular. Skin cool and clamy. Monitor for signs and sxs of autonomic dysfx. Amlodipine (new medication) stopped 03/25/16; lisinopril stopped 03/26/15. No longer orthostatic and BP increasing since since meds were discontinued. If she becomes hypertensive (>140/90) will restart lisinopril. No sxs of vascular instabilty or autonomic dysfx. * MRSA UTI: Cont ABX's through 03/30. Cont isolation precautions. No active Sx /SX of UTI * Urinary retention: Resolved, voiding completely. * N Bowel: incontinence has resolved. * Hyponatremia: resolved, no fluid restriction. Recheck BMP in AM 03/30/16. Have d/w nursing to stop fluid restrictions. * Nutrition: Albumin low at 3.0, monitor intake, supplements as needed. * Dyslipidemia: cont current meds * L shoulder Pain: status quo, trial of alternative modalities. * Insomnia: Using occasional zolpidem. * DVT PPX: Cont enoxaparin until ambulatory or DC. * Lung nodule: to follow up with oncology on dc. Monitor clinically. * Adjustment to disabilities: pt notes some struggling with emotions, but not impairing her ability to participate in therapies. She is engaging with SW on the issue, and feels supported. no SI. Will need to ascend stairs to reach the living floor of her home. Anticipated discharge home 04/15/16. Plan: 03/30/16 10:20 03/30/16 10:24 03/31/16 11:53 Subjective: She had severe LE pain last pm and this resolved after she was given 10 mg of oxycodone. She currently denies neuropathic pain in the legs. She denies JACOB or feeling lightheaded or dizzy. Objective: Vital Signs Temp Pulse Resp BP Pulse Ox 36.7 C 83 16 103/65 93 03/31/16 06:09 03/31/16 06:09 03/31/16 06:09 03/31/16 06:09 03/31/16 06:09 Laboratory Results 03/23/16 07:30 03/31/16 04:15 03/30/16 03/31/16 04/01/16 05:59 05:59 05:59 Intake Total 150 1240 Output Total 1450 1100 Balance -1300 140 Physical Exam - Physical Exam General Appearance: WD/WN, alert, no apparent distress Respiratory: chest non-tender, lungs clear, normal breath sounds Cardiac/Chest: regular rate, rhythm, tachycardia (pulse 108 and reg while in standing frame), No edema, No JVD, No irregularly irregular Abdomen: normal bowel sounds, non-tender, soft Skin: normal color, other (slightly cool and clamy while in standing frame. ) Extremities: No calf tenderness, No swelling, No Felecia's sign Neuro/Psych: motor weakness (LE weakness greater than UE weakness) ICD10 Worksheet Patient Problems: Problems Problem Status Diagnosed Adenocarcinoma of lung Acute Hyponatremia Acute Inflammatory polyradiculoneuropathy Acute MRSA (methicillin resistant Staphylococcus aureus) Acute UTI (urinary tract infection) Acute
[2016-03-31] MEDS: MELATONIN 3 MG TAB PO SCH (22:00)
[2016-03-31] MEDS: PATCH REMOVAL 1 EA PATCH TD SCH (22:00)
[2016-03-31] MEDS: ZOLPIDEM TARTRATE 5 MG TAB PO SCH ×2 (22:03→22:27)
--- NOTE | 2016-04-01 09:47 | SOAPPROG ---
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 Improving s/p IVIG. Initial FIM 57 on 03/25/16; improved 20 80 as of 04/01/16. Still min to mod A for ADLs. Slide-board transfers with nursing. Working on sit to stand, max A of 2, but can stand at rail min A. Continue PT & OT. * HTN/Orthostatic hypotension. Amlodipine (new medication) stopped 03/25/16; lisinopril stopped 03/26/15. No longer orthostatic and BP increasing since since meds were discontinued. If she becomes hypertensive (>140/90) will restart lisinopril. * MRSA UTI: Doxycycline competed 03/30. Cont isolation precautions. No active Sx/SX of UTI * Urinary retention: Resolved, voiding completely. * N Bowel: incontinence has resolved. * Hyponatremia: resolved, no fluid restriction. Recheck BMP in AM 03/30/16. * Nutrition: Albumin low at 3.0, monitor intake, supplements as needed. * Dyslipidemia: cont current meds * L shoulder Pain: status quo, trial of alternative modalities. * Insomnia: Using occasional zolpidem. * DVT PPX: Cont enoxaparin until ambulatory or DC. * Lung nodule: to follow up with oncology on dc. Monitor clinically. * Adjustment to disabilities: pt notes some struggling with emotions, but not impairing her ability to participate in therapies. She is engaging with SW on the issue, and feels supported. no SI. Attended staffing, 15 min. D/W case mgmt, nursing, PT, OT. Will need to ascend stairs to reach the living floor of her home. Anticipated discharge home 04/19/16. 04/01/16 11:49 Subjective: No complaints. Working with PT. Stood at rail (rather than in standing frame) for the first time today. Objective: Vital Signs Temp Pulse Resp BP Pulse Ox 37.0 C 88 16 119/78 94 04/01/16 06:34 04/01/16 06:34 04/01/16 06:34 04/01/16 06:34 04/01/16 06:34 Laboratory Results 03/23/16 07:30 03/31/16 04:15 01/04/01/16 04/02/16 05:59 05:59 05:59 Intake Total 1240 200 Output Total 1100 780 Balance 140 -580 Physical Exam - Physical Exam General Appearance: WD/WN, alert, no apparent distress Respiratory: No respiratory distress, No accessory muscle use Skin: normal color, warm/dry Neuro/Psych: alert, normal mood/affect, oriented x 3, motor weakness (With PT. Arises from wheelchair with assistance of 2. Stands independently holding rail. ) ICD10 Worksheet Patient Problems: Problems Problem Status Diagnosed Adenocarcinoma of lung Acute Hyponatremia Acute Inflammatory polyradiculoneuropathy Acute MRSA (methicillin resistant Staphylococcus aureus) Acute UTI (urinary tract infection) Acute
[2016-04-01] MEDS: ENOXAPARIN 40 MG/0.4 ML SYR SC SCH (10:08)
[2016-04-01] MEDS: LIDOCAINE 5% 1 EA PATCH TD SCH (10:09)
[2016-04-01] MEDS: PRAVASTATIN SODIUM 20 MG TAB PO SCH (10:10)
[2016-04-01] MEDS: MELATONIN 3 MG TAB PO SCH (22:10)
[2016-04-01] MEDS: PATCH REMOVAL 1 EA PATCH TD SCH (22:11)
[2016-04-01] MEDS: ZOLPIDEM TARTRATE 5 MG TAB PO SCH (22:11)
[2016-04-02] MEDS: LIDOCAINE 5% 1 EA PATCH TD SCH (08:31)
[2016-04-02] MEDS: ENOXAPARIN 40 MG/0.4 ML SYR SC SCH (08:31)
[2016-04-02] MEDS: PRAVASTATIN SODIUM 20 MG TAB PO SCH (08:32)
--- NOTE | 2016-04-02 14:47 | SOAPPROG ---
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 Improving s/p IVIG. Initial FIM 57 on 03/25/16; improved 20 80 as of 04/01/16. Still min to mod A for ADLs. Slide-board transfers with nursing. Working on sit to stand, max A of 2, but can stand at rail min A. Continue PT & OT. * HTN/Orthostatic hypotension. Amlodipine (new medication) stopped 03/25/16; lisinopril stopped 03/26/15. No longer orthostatic and BP increasing since since meds were discontinued. If she becomes hypertensive (>140/90) will restart lisinopril. * MRSA UTI: Doxycycline competed 03/30. Cont isolation precautions. No active Sx/SX of UTI * Urinary retention: Resolved, voiding completely. * N Bowel: incontinence has resolved. * Hyponatremia: resolved, no fluid restriction. Recheck BMP in AM 03/30/16. * Nutrition: Albumin low at 3.0, monitor intake, supplements as needed. * Dyslipidemia: cont current meds * L shoulder Pain: status quo, trial of alternative modalities. * Insomnia: Using occasional zolpidem. * DVT PPX: Cont enoxaparin until ambulatory or DC. * Lung nodule: to follow up with oncology on dc. Monitor clinically. * Adjustment to disabilities: pt notes some struggling with emotions, but not impairing her ability to participate in therapies. She is engaging with SW on the issue, and feels supported. no SI. Attended staffing, 15 min. D/W case mgmt, nursing, PT, OT. Will need to ascend stairs to reach the living floor of her home. Anticipated discharge home 04/19/16. 04/02/16 14:46 Subjective: No complaints. Working with PT in standing frame on pre-gait activities. Objective: Vital Signs Temp Pulse Resp BP Pulse Ox 36.8 C 80 17 126/71 H 93 04/02/16 06:41 04/02/16 06:41 04/02/16 06:41 04/02/16 06:41 04/02/16 06:41 Laboratory Results 03/23/16 07:30 03/31/16 04:15 04/01/16 04/02/16 04/03/16 05:59 05:59 05:59 Intake Total 200 1326 600 Output Total 780 750 500 Balance -580 576 100 Physical Exam - Physical Exam General Appearance: WD/WN, alert, no apparent distress Respiratory: No respiratory distress, No accessory muscle use Skin: normal color, warm/dry Neuro/Psych: alert, normal mood/affect, oriented x 3, motor weakness (BLE > BUE ; able to bear weight in standing frame with much cueing and knee blocking per PT) ICD10 Worksheet Patient Problems: Problems Problem Status Diagnosed Adenocarcinoma of lung Acute Hyponatremia Acute Inflammatory polyradiculoneuropathy Acute MRSA (methicillin resistant Staphylococcus aureus) Acute UTI (urinary tract infection) Acute
[2016-04-02] MEDS: ZOLPIDEM TARTRATE 5 MG TAB PO SCH (22:14)
[2016-04-02] MEDS: MELATONIN 3 MG TAB PO SCH (22:15)
[2016-04-02] MEDS: PATCH REMOVAL 1 EA PATCH TD SCH (22:16)
[2016-04-03] MEDS: PRAVASTATIN SODIUM 20 MG TAB PO SCH (08:57)
[2016-04-03] MEDS: ENOXAPARIN 40 MG/0.4 ML SYR SC SCH (08:57)
[2016-04-03] MEDS: LIDOCAINE 5% 1 EA PATCH TD SCH (08:57)
--- NOTE | 2016-04-03 10:42 | SOAPPROG ---
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 Improving s/p IVIG. Initial FIM 57 on 03/25/16; improved to 80 as of 04/01/16. Still min to mod A for ADLs. Slide-board transfers with nursing. Working on sit to stand, max A of 2, but can stand at rail min A. Continue PT & OT. * HTN/Orthostatic hypotension. Amlodipine (new medication) stopped 03/25/16; lisinopril stopped 03/26/15. No longer orthostatic and BP increasing since since meds were discontinued. If she becomes hypertensive (>140/90) will restart lisinopril. * MRSA UTI: Doxycycline competed 03/30. Cont isolation precautions. No active Sx/SX of UTI * Urinary retention: Resolved, voiding completely. * N Bowel: incontinence has resolved. * Hyponatremia: resolved, no fluid restriction. * Nutrition: Albumin low at 3.0, monitor intake, supplements as needed. Taking adequate calories and protein. * Dyslipidemia: cont current meds * L shoulder Pain: status quo, trial of alternative modalities. * Insomnia: Using occasional zolpidem. * DVT PPX: Cont enoxaparin until ambulatory or DC. * Lung nodule: to follow up with oncology on dc. Monitor clinically. * Adjustment to disabilities: pt notes some struggling with emotions, but not impairing her ability to participate in therapies. She is engaging with SW on the issue, and feels supported. no SI. Will need to ascend stairs to reach the living floor of her home. Anticipated discharge home 04/19/16. 04/03/16 10:40 Subjective: No complaints. Working with OT. Denies cough, dyspnea, n/v/c/d, f/c. Objective: Vital Signs Temp Pulse Resp BP Pulse Ox 37.3 C 94 16 108/69 94 04/02/16 20:00 04/02/16 20:00 04/02/16 20:00 04/02/16 20:00 04/02/16 20:00 Laboratory Results 03/23/16 07:30 03/31/16 04:15 04/02/16 04/03/16 04/04/16 05:59 05:59 05:59 Intake Total 1326 1000 Output Total 750 1150 Balance 576 -150 Physical Exam - Physical Exam General Appearance: WD/WN, alert, no apparent distress Respiratory: normal breath sounds, No crackles, No rhonchi, No wheezing Cardiac/Chest: regular rate, rhythm, No edema Neuro/Psych: alert, normal mood/affect, oriented x 3, motor weakness (doing upper extremity exercises with OT, sitting on edge of mat.) ICD10 Worksheet Patient Problems: Problems Problem Status Diagnosed Adenocarcinoma of lung Acute Hyponatremia Acute Inflammatory polyradiculoneuropathy Acute MRSA (methicillin resistant Staphylococcus aureus) Acute UTI (urinary tract infection) Acute
[2016-04-03] MEDS: MELATONIN 3 MG TAB PO SCH (22:30)
[2016-04-03] MEDS: ZOLPIDEM TARTRATE 5 MG TAB PO SCH (22:30)
[2016-04-03] MEDS: PATCH REMOVAL 1 EA PATCH TD SCH (22:30)
[2016-04-04] MEDS: LIDOCAINE 5% 1 EA PATCH TD SCH (09:20)
[2016-04-04] MEDS: PRAVASTATIN SODIUM 20 MG TAB PO SCH (09:20)
[2016-04-04] MEDS: ENOXAPARIN 40 MG/0.4 ML SYR SC SCH (09:20)
--- NOTE | 2016-04-04 14:38 | SOAPPROG ---
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 Improving s/p IVIG. Initial FIM 57 on 03/25/16; improved to 80 as of 04/01/16. Still min to mod A for ADLs. Slide-board transfers improving. Working on sit to stand. Continue PT & OT. * HTN/Orthostatic hypotension. Amlodipine (new medication) stopped 03/25/16; lisinopril stopped 03/26/15. No longer orthostatic and BP increasing since since meds were discontinued. If she becomes hypertensive (>140/90) will restart lisinopril. * MRSA UTI: Doxycycline competed 03/30. Cont isolation precautions. No active Sx/SX of UTI * Urinary retention: Resolved, voiding completely. * N Bowel: incontinence has resolved. * Hyponatremia: resolved, no fluid restriction. * Nutrition: Albumin low at 3.0, monitor intake, supplements as needed. Taking adequate calories and protein. * Dyslipidemia: cont current meds * L shoulder Pain: status quo, trial of alternative modalities. * Insomnia: Using occasional zolpidem. * DVT PPX: Cont enoxaparin until ambulatory or DC. * Lung nodule: to follow up with oncology on dc. Monitor clinically. * Adjustment to disabilities: pt notes some struggling with emotions, but not impairing her ability to participate in therapies. She is engaging with SW on the issue, and feels supported. no SI. Will need to ascend stairs to reach the living floor of her home. Anticipated discharge home 04/19/16. 04/04/16 14:37 Subjective: No complaints. Working with PT in standing frame. Objective: Vital Signs Temp Pulse Resp BP Pulse Ox 37 C 83 17 105/72 95 04/04/16 06:31 04/04/16 06:31 04/04/16 06:31 04/04/16 06:31 04/04/16 06:31 Laboratory Results 03/23/16 07:30 03/31/16 04:15 04/03/16 04/04/16 04/05/16 05:59 05:59 05:59 Intake Total 1000 1112 760 Output Total 1150 950 500 Balance -150 162 260 Physical Exam - Physical Exam General Appearance: WD/WN, alert, no apparent distress Respiratory: No respiratory distress, No accessory muscle use Skin: normal color, warm/dry Neuro/Psych: alert, normal mood/affect, oriented x 3, other (Sliding board [place] from wheelchair to seat of standing frame with min A re set-up.) ICD10 Worksheet Patient Problems: Problems Problem Status Diagnosed Adenocarcinoma of lung Acute Hyponatremia Acute Inflammatory polyradiculoneuropathy Acute MRSA (methicillin resistant Staphylococcus aureus) Acute UTI (urinary tract infection) Acute
[2016-04-04] MEDS: MELATONIN 3 MG TAB PO SCH (22:17)
[2016-04-04] MEDS: ZOLPIDEM TARTRATE 5 MG TAB PO SCH (22:17)
[2016-04-04] MEDS: PATCH REMOVAL 1 EA PATCH TD SCH (22:32)
[2016-04-05] MEDS: LIDOCAINE 5% 1 EA PATCH TD SCH (08:41)
[2016-04-05] MEDS: PRAVASTATIN SODIUM 20 MG TAB PO SCH (08:41)
[2016-04-05] MEDS: ENOXAPARIN 40 MG/0.4 ML SYR SC SCH (08:42)
--- NOTE | 2016-04-05 13:09 | SOAPPROG ---
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 Improving s/p IVIG. Initial FIM 57 on 03/25/16; improved to 80 as of 04/01/16. Still min to mod A for ADLs. Slide-board transfers improving. Working on sit to stand. Continue PT & OT. * HTN/Orthostatic hypotension. Amlodipine (new medication) stopped 03/25/16; lisinopril stopped 03/26/15. No longer orthostatic and BP increasing since since meds were discontinued. If she becomes hypertensive (>140/90) will restart lisinopril. * MRSA UTI: Doxycycline competed 03/30. Cont isolation precautions for one year since culture positive. No active Sx/SX of UTI * Urinary retention: Resolved, voiding completely. * N Bowel: incontinence has resolved. * Hyponatremia: resolved, no fluid restriction. * Nutrition: Albumin low at 3.0, monitor intake, supplements as needed. Taking adequate calories and protein. * Dyslipidemia: cont current meds * L shoulder Pain: status quo, trial of alternative modalities. * Insomnia: Using occasional zolpidem. * DVT PPX: Cont enoxaparin until ambulatory or DC. * Lung nodule: to follow up with oncology on dc. Monitor clinically. * Adjustment to disabilities: pt notes some struggling with emotions, but not impairing her ability to participate in therapies. She is engaging with SW on the issue, and feels supported. no SI. Will need to ascend stairs to reach the living floor of her home. Anticipated discharge home 04/19/16. 04/05/16 13:06 04/05/16 13:17 Subjective: Improving strength but she wishes it would progress faster. O/W no complaints. Objective: Vital Signs Temp Pulse Resp BP Pulse Ox 36.7 C 88 16 118/78 94 04/05/16 06:47 04/05/16 06:47 04/05/16 06:47 04/05/16 06:47 04/05/16 06:47 Laboratory Results 03/23/16 07:30 03/31/16 04:15 04/04/16 04/05/16 04/06/16 05:59 05:59 05:59 Intake Total 1112 1260 780 Output Total 950 1700 Balance 162 -440 780 Physical Exam - Physical Exam General Appearance: WD/WN, alert, mild distress Respiratory: No respiratory distress, No accessory muscle use Skin: normal color, warm/dry Neuro/Psych: alert, normal mood/affect, oriented x 3 ICD10 Worksheet Patient Problems: Problems Problem Status Diagnosed Adenocarcinoma of lung Acute Hyponatremia Acute Inflammatory polyradiculoneuropathy Acute MRSA (methicillin resistant Staphylococcus aureus) Acute UTI (urinary tract infection) Acute
[2016-04-05] MEDS: ZOLPIDEM TARTRATE 5 MG TAB PO SCH (21:52)
[2016-04-05] MEDS: MELATONIN 3 MG TAB PO SCH (21:52)
[2016-04-05] MEDS: PATCH REMOVAL 1 EA PATCH TD SCH (22:04)
[2016-04-06] MEDS ORDERED: ACETAMINOPHEN 650 MG/20.3 ML UDCUP PO PRN (07:04)
[2016-04-06] MEDS: IBUPROFEN 600 MG TAB PO PRN ×2 (08:07→18:01)
[2016-04-06] MEDS: PRAVASTATIN SODIUM 20 MG TAB PO SCH (08:07)
[2016-04-06] MEDS: LIDOCAINE 5% 1 EA PATCH TD SCH (08:07)
[2016-04-06] MEDS: ENOXAPARIN 40 MG/0.4 ML SYR SC SCH (08:08)
--- NOTE | 2016-04-06 12:51 | SOAPPROG ---
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 Improving s/p IVIG. Initial FIM 57 on 03/25/16; improved to 80 as of 04/01/16. Still min to mod A for ADLs. Slide-board transfers improving. Working on sit to stand. Continue PT & OT. * HTN/Orthostatic hypotension. Amlodipine (new medication) stopped 03/25/16; lisinopril stopped 03/26/15. No longer orthostatic and BP increasing since since meds were discontinued. If she becomes hypertensive (>140/90) will restart lisinopril. * MRSA UTI: Doxycycline competed 03/30. Cont isolation precautions for one year since culture positive. No active Sx/SX of UTI * Urinary retention: Resolved, voiding completely. * N Bowel: incontinence has resolved. * Hyponatremia: resolved, no fluid restriction. * Nutrition: Albumin low at 3.0, monitor intake, supplements as needed. Taking adequate calories and protein. * Dyslipidemia: cont current meds * L shoulder Pain: status quo, trial of alternative modalities. * Insomnia: Using occasional zolpidem. * DVT PPX: Cont enoxaparin until ambulatory or DC. * Lung nodule: to follow up with oncology on dc. Monitor clinically. * Adjustment to disabilities: pt notes some struggling with emotions, but not impairing her ability to participate in therapies. She is engaging with SW on the issue, and feels supported. no SI. Will need to ascend stairs to reach the living floor of her home. Anticipated discharge home 04/19/16. 04/06/16 12:50 Subjective: No complaints. Reports she's begun walking in parallel bars. Objective: Vital Signs Temp Pulse Resp BP Pulse Ox 36.7 C 82 16 118/77 92 04/06/16 08:00 04/06/16 08:00 04/06/16 08:00 04/06/16 08:00 04/06/16 08:00 Laboratory Results 03/23/16 07:30 03/31/16 04:15 04/05/16 04/06/16 04/07/16 05:59 05:59 05:59 Intake Total 1260 1320 780 Output Total 1700 300 Balance -440 1320 480 Physical Exam - Physical Exam General Appearance: WD/WN, alert, no apparent distress Respiratory: No respiratory distress, No accessory muscle use Skin: normal color, warm/dry Neuro/Psych: alert, normal mood/affect, oriented x 3 ICD10 Worksheet Patient Problems: Problems Problem Status Diagnosed Adenocarcinoma of lung Acute Hyponatremia Acute Inflammatory polyradiculoneuropathy Acute MRSA (methicillin resistant Staphylococcus aureus) Acute UTI (urinary tract infection) Acute
[2016-04-06] MEDS: MELATONIN 3 MG TAB PO SCH (22:08)
[2016-04-06] MEDS: PATCH REMOVAL 1 EA PATCH TD SCH (22:09)
[2016-04-06] MEDS: ZOLPIDEM TARTRATE 5 MG TAB PO SCH (22:09)
[2016-04-07] MEDS: LIDOCAINE 5% 1 EA PATCH TD SCH (07:28)
[2016-04-07] MEDS: ENOXAPARIN 40 MG/0.4 ML SYR SC SCH (07:28)
[2016-04-07] MEDS: IBUPROFEN 600 MG TAB PO PRN (07:29)
[2016-04-07] MEDS: PRAVASTATIN SODIUM 20 MG TAB PO SCH (07:29)
--- NOTE | 2016-04-07 11:25 | SOAPPROG ---
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 Improving s/p IVIG. Initial FIM 57 on 03/25/16; improved to 80 as of 04/01/16. Still min to mod A for ADLs. Progressed from slide-board transfers to squat-pivot. Initiated gait training in parallel bars. Working on sit to stand. Continue PT & OT. * HTN/Orthostatic hypotension. Amlodipine (new medication) stopped 03/25/16; lisinopril stopped 03/26/15. No longer orthostatic and BP increasing since since meds were discontinued. If she becomes hypertensive (>140/90) will restart lisinopril. * MRSA UTI: Doxycycline competed 03/30. Cont isolation precautions for one year since culture positive. No active Sx/SX of UTI * Urinary retention: Resolved, voiding completely. * N Bowel: incontinence has resolved. * Hyponatremia: resolved, no fluid restriction. * Nutrition: Albumin low at 3.0, monitor intake, supplements as needed. Taking adequate calories and protein. * Dyslipidemia: cont current meds * L shoulder Pain: status quo, trial of alternative modalities. Perr nursing suggestion, ordered Beau-freeman 04/07/16. * Insomnia: Using occasional zolpidem. * DVT PPX: Cont enoxaparin until ambulatory or DC. * Lung nodule: to follow up with oncology on dc. Monitor clinically. * Adjustment to disabilities: pt notes some struggling with emotions, but not impairing her ability to participate in therapies. She is engaging with SW on the issue, and feels supported. no SI. Will need to ascend stairs to reach the living floor of her home. Anticipated discharge home 04/19/16. 04/07/16 11:23 Subjective: No complaints. Had a stiff shoulder overnight and this morning, but improved with activity in OT. Objective: Vital Signs Temp Pulse Resp BP Pulse Ox 36.7 C 88 18 132/79 H 95 04/07/16 06:47 04/07/16 06:47 04/07/16 06:47 04/07/16 06:47 04/07/16 06:47 Laboratory Results 03/23/16 07:30 03/31/16 04:15 04/06/16 04/07/16 04/08/16 05:59 05:59 05:59 Intake Total 1320 2760 1080 Output Total 1900 Balance 1083 266 0397 Physical Exam - Physical Exam General Appearance: WD/WN, alert, no apparent distress Respiratory: normal breath sounds, No respiratory distress, No accessory muscle use Skin: normal color, warm/dry Neuro/Psych: alert, normal mood/affect, oriented x 3, other (On mat with OT, doing prone arm extension exercises, supported on an inflated ball) ICD10 Worksheet Patient Problems: Problems Problem Status Diagnosed Adenocarcinoma of lung Acute Hyponatremia Acute Inflammatory polyradiculoneuropathy Acute MRSA (methicillin resistant Staphylococcus aureus) Acute UTI (urinary tract infection) Acute
[2016-04-07] MEDS: MELATONIN 3 MG TAB PO SCH (21:57)
[2016-04-07] MEDS: ZOLPIDEM TARTRATE 5 MG TAB PO SCH (21:58)
[2016-04-07] MEDS: METHYL SALICYLATE/MENTHOL OINTMENT TP PRN (22:00)
[2016-04-07] MEDS: PATCH REMOVAL 1 EA PATCH TD SCH (22:05)
[2016-04-08] MEDS: LIDOCAINE 5% 1 EA PATCH TD SCH (07:58)
[2016-04-08] MEDS: ENOXAPARIN 40 MG/0.4 ML SYR SC SCH (07:58)
[2016-04-08] MEDS: PRAVASTATIN SODIUM 20 MG TAB PO SCH (07:59)
[2016-04-08] MEDS: IBUPROFEN 600 MG TAB PO PRN (07:59)
--- NOTE | 2016-04-08 10:10 | SOAPPROG ---
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 Improving s/p IVIG. Initial FIM 57 on 03/25/16; improved to 811 as of 04/01/16, and to 86 as of . Progressed from slide-board transfers to squat-pivot. Initiated gait training in parallel bars; has walked 8 feet. Mod A sit to stand. Continue PT & OT. * HTN/Orthostatic hypotension. Amlodipine (new medication) stopped 03/25/16; lisinopril stopped 03/26/15. No longer orthostatic and BP increasing since since meds were discontinued. If she becomes hypertensive (>140/90) will restart lisinopril. * L shoulder Pain: continue ibuprofen, Beau-freeman 04/07/16. * MRSA UTI: Doxycycline competed 03/30. Cont isolation precautions for one year since culture positive. No active Sx/SX of UTI * Urinary retention: Resolved, voiding completely. * N Bowel: incontinence has resolved. * Hyponatremia: resolved, no fluid restriction. * Nutrition: Taking adequate calories and protein. * Dyslipidemia: cont current meds * Insomnia: Using occasional zolpidem. * DVT PPX: Cont enoxaparin until ambulatory or DC. * Lung nodule: to follow up with oncology on dc. Monitor clinically. * Adjustment to disabilities: pt notes some struggling with emotions, but not impairing her ability to participate in therapies. She is engaging with SW on the issue, and feels supported. no SI. Attended staffing, 15 min. D/W case mgmt, nursing, PT, OT. Will need to ascend stairs to reach the living floor of her home. Making ood progress; anticipated discharge home expended from 04/19/16 to 04/26/16. 04/08/16 11:07 Subjective: No complaints. Working wit OT. Nurse reports L shoulder pain, treated with ibuprofen. Objective: Vital Signs Temp Pulse Resp BP Pulse Ox 36.5 C 16 L 16 120/80 96 04/07/16 19:25 04/07/16 19:25 04/07/16 19:25 04/07/16 19:25 04/07/16 19:25 Laboratory Results 03/23/16 07:30 03/31/16 04:15 04/07/16 04/08/16 04/09/16 05:59 05:59 05:59 Intake Total 2760 2460 534 Output Total 1900 2100 Balance 860 360 534 - Time Spent With Patient Time Spent With Patient: Greater than 35 minutes floor time today, including more than 50% of time in coordination of care during staffing meeting. Physical Exam - Physical Exam General Appearance: WD/WN, alert, no apparent distress Respiratory: No respiratory distress, No accessory muscle use Skin: normal color, warm/dry Neuro/Psych: alert, normal mood/affect, oriented x 3 ICD10 Worksheet Patient Problems: Problems Problem Status Diagnosed Adenocarcinoma of lung Acute Hyponatremia Acute Inflammatory polyradiculoneuropathy Acute MRSA (methicillin resistant Staphylococcus aureus) Acute UTI (urinary tract infection) Acute
[2016-04-08] MEDS: MELATONIN 3 MG TAB PO SCH (22:08)
[2016-04-08] MEDS: ZOLPIDEM TARTRATE 5 MG TAB PO SCH (22:08)
[2016-04-08] MEDS: PATCH REMOVAL 1 EA PATCH TD SCH (22:09)
[2016-04-08] MEDS: METHYL SALICYLATE/MENTHOL OINTMENT TP PRN (22:12)
[2016-04-09] MEDS: IBUPROFEN 600 MG TAB PO PRN (04:09)
[2016-04-09] MEDS: PRAVASTATIN SODIUM 20 MG TAB PO SCH (08:42)
[2016-04-09] MEDS: LIDOCAINE 5% 1 EA PATCH TD SCH (08:42)
[2016-04-09] MEDS: ENOXAPARIN 40 MG/0.4 ML SYR SC SCH (08:42)
--- NOTE | 2016-04-09 14:46 | SOAPPROG ---
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 Improving s/p IVIG. Initial FIM 57 on 03/25/16; improved to 811 as of 04/01/16, and to 86 as of . Progressed from slide-board transfers to squat-pivot. Initiated gait training in parallel bars; has walked 8 feet. Mod A sit to stand. Continue PT & OT. * HTN/Orthostatic hypotension. Amlodipine (new medication) stopped 03/25/16; lisinopril stopped 03/26/15. No longer orthostatic and BP increasing since since meds were discontinued. If she becomes hypertensive (>140/90) will restart lisinopril. * L shoulder Pain: continue ibuprofen, Beau-freeman 04/07/16. * MRSA UTI: Doxycycline competed 03/30. Cont isolation precautions for one year since culture positive. No active Sx/SX of UTI * Urinary retention: Resolved, voiding completely. * N Bowel: incontinence has resolved. * Hyponatremia: resolved, no fluid restriction. * Nutrition: Taking adequate calories and protein. * Dyslipidemia: cont current meds * Insomnia: Using occasional zolpidem. * DVT PPX: Cont enoxaparin until ambulatory or DC. * Lung nodule: to follow up with oncology on dc. Monitor clinically. * Adjustment to disabilities: pt notes some struggling with emotions, but not impairing her ability to participate in therapies. She is engaging with SW on the issue, and feels supported. no SI. Much improved, working hard. Will need to ascend stairs to reach the living floor of her home. Making ood progress; anticipated discharge home expended from 04/19/16 to 04/26/16. 04/09/16 14:45 Subjective: Fatigued after a full morning of therapy. O/W no complaints. Objective: Vital Signs Temp Pulse Resp BP Pulse Ox 36.6 C 80 16 107/67 93 04/09/16 05:08 04/09/16 05:08 04/09/16 05:08 04/09/16 05:08 04/09/16 05:08 Laboratory Results 03/23/16 07:30 03/31/16 04:15 04/08/16 04/09/16 04/10/16 05:59 05:59 05:59 Intake Total 2460 1720 1080 Output Total 2100 1175 Balance 405 333 7049 Physical Exam - Physical Exam General Appearance: WD/WN, alert, no apparent distress Respiratory: No respiratory distress, No accessory muscle use Skin: normal color, warm/dry Neuro/Psych: alert, normal mood/affect, oriented x 3 ICD10 Worksheet Patient Problems: Problems Problem Status Diagnosed Adenocarcinoma of lung Acute Hyponatremia Acute Inflammatory polyradiculoneuropathy Acute MRSA (methicillin resistant Staphylococcus aureus) Acute UTI (urinary tract infection) Acute
[2016-04-09] MEDS: MELATONIN 3 MG TAB PO SCH (21:58)
[2016-04-09] MEDS: ZOLPIDEM TARTRATE 5 MG TAB PO SCH (21:58)
[2016-04-09] MEDS: PATCH REMOVAL 1 EA PATCH TD SCH (21:58)
[2016-04-10] MEDS: ENOXAPARIN 40 MG/0.4 ML SYR SC SCH (08:40)
[2016-04-10] MEDS: LIDOCAINE 5% 1 EA PATCH TD SCH (08:40)
[2016-04-10] MEDS: PRAVASTATIN SODIUM 20 MG TAB PO SCH (08:41)
[2016-04-10] MEDS ORDERED: MELATONIN 3 MG TAB PO SCH (12:51)
--- NOTE | 2016-04-10 12:56 | SOAPPROG ---
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 Improving s/p IVIG. Initial FIM 57 on 03/25/16; improved to 81 as of 04/01/16, and to 86 as of . Progressed from slide-board transfers to squat-pivot. Walking this week has progressed from 8' in parallel bars to ambulating in hallway with FWW. Mod A sit to stand. Continue PT & OT. * HTN/Orthostatic hypotension. Amlodipine (new medication) stopped 03/25/16; lisinopril stopped 03/26/15. No longer orthostatic and BP increasing since since meds were discontinued. If she becomes hypertensive (>140/90) will restart lisinopril. * L shoulder Pain: continue ibuprofen, Beau-freeman 04/07/16; lidocaine patch. * MRSA UTI: Doxycycline competed 03/30. Cont isolation precautions for one year since culture positive. No active Sx/SX of UTI * Urinary retention: Resolved, voiding completely. * N Bowel: incontinence has resolved. * Hyponatremia: resolved, no fluid restriction. * Nutrition: Taking adequate calories and protein. * Dyslipidemia: cont current meds * Insomnia: Using scheduled zolpidem; will taper; taper melatonin as well; both starting 04/10/16. * DVT PPX: Cont enoxaparin until ambulatory or DC. * Lung nodule: to follow up with oncology on dc. Monitor clinically. * Adjustment to disabilities: pt notes some struggling with emotions, but not impairing her ability to participate in therapies. She is engaging with SW on the issue, and feels supported. no SI. Much improved, working hard. Will need to ascend stairs to reach the living floor of her home. Making ood progress; anticipated discharge home expended from 04/19/16 to 04/26/16. 04/10/16 12:53 Subjective: C/O dry eyes and burning. She thinks lidocaine patch is helpful for L shoulder pain. Attains sleep well; awoke at about 0500 but got back to sleep. O/W no complaints. Objective: Vital Signs Temp Pulse Resp BP Pulse Ox 36.5 C 84 16 127/76 H 93 04/10/16 05:35 04/10/16 05:35 04/10/16 05:35 04/10/16 05:35 04/10/16 05:35 Laboratory Results 03/23/16 07:30 03/31/16 04:15 04/09/16 04/10/16 04/11/16 05:59 05:59 05:59 Intake Total 1720 1480 236 Output Total 1175 600 Balance 545 880 236 Physical Exam - Physical Exam General Appearance: WD/WN, alert, no apparent distress EENT: other (Sclerae, conjunctiva wnl) Respiratory: No respiratory distress, No accessory muscle use Skin: normal color, warm/dry Neuro/Psych: alert, normal mood/affect, oriented x 3, abnormal gait (Ambulating in silver with assistance of PT, FWW), motor weakness ICD10 Worksheet Patient Problems: Problems Problem Status Diagnosed Adenocarcinoma of lung Acute Hyponatremia Acute Inflammatory polyradiculoneuropathy Acute MRSA (methicillin resistant Staphylococcus aureus) Acute UTI (urinary tract infection) Acute
[2016-04-10] MEDS: ZOLPIDEM TARTRATE 5 MG TAB PO SCH (22:02)
[2016-04-10] MEDS: PATCH REMOVAL 1 EA PATCH TD SCH (22:11)
[2016-04-11] MEDS: ENOXAPARIN 40 MG/0.4 ML SYR SC SCH (09:06)
[2016-04-11] MEDS: PRAVASTATIN SODIUM 20 MG TAB PO SCH (09:06)
[2016-04-11] MEDS: LIDOCAINE 5% 1 EA PATCH TD SCH (09:06)
[2016-04-11] MEDS ORDERED: MELATONIN 3 MG TAB PO SCH (11:51)
--- NOTE | 2016-04-11 12:17 | SOAPPROG ---
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 Improving s/p IVIG. Initial FIM 57 on 03/25/16; improved to 81 as of 04/01/16, and to 86 as of . Progressed from slide-board transfers to squat-pivot. Walking this week has progressed from 8' in parallel bars to ambulating in hallway with FWW. Mod A sit to stand. Continue PT & OT. * HTN/Orthostatic hypotension. Amlodipine (new medication) stopped 03/25/16; lisinopril stopped 03/26/15. No longer orthostatic and BP increasing since since meds were discontinued. If she becomes hypertensive (>140/90) will restart lisinopril. * L shoulder Pain: continue ibuprofen, Beau-freeman 04/07/16; lidocaine patch. * MRSA UTI: Doxycycline competed 03/30. Cont isolation precautions for one year since culture positive. No active Sx/SX of UTI * Urinary retention: Resolved, voiding completely. * N Bowel: incontinence has resolved. * Hyponatremia: resolved, no fluid restriction. * Nutrition: Taking adequate calories and protein. * Dyslipidemia: cont current meds * Insomnia: Using scheduled zolpidem; tapered from 10 mg QHS to 5 mg QHS starting 04/10/16; tapered melatonin as well; no change in sleep onset or duration. Will d/c melatonin 04/11/16. Continue to monitor. * DVT PPX: Cont enoxaparin until ambulatory or DC. * Lung nodule: to follow up with oncology on dc. Monitor clinically. * Adjustment to disabilities: pt notes some struggling with emotions, but not impairing her ability to participate in therapies. She is engaging with SW on the issue, and feels supported. no SI. Much improved, working hard. Will need to ascend stairs to reach the living floor of her home. Making good progress; anticipated discharge home expended from 04/19/16 to 04/26/16. 04/11/16 12:13 Subjective: No complaints. Stayed up later last night, until 11:00, and slept later into the morning, but still feels she awoke early. Not in pain, no f/c, cough/ dyspnea. Had sleep issues prior to GBS, but worse since. Objective: Vital Signs Temp Pulse Resp BP Pulse Ox 36.8 C 90 14 106/73 95 04/11/16 07:44 04/11/16 12:11 04/11/16 07:44 04/11/16 12:11 04/11/16 07:44 Laboratory Results 03/23/16 07:30 03/31/16 04:15 04/10/16 04/11/16 04/12/16 05:59 05:59 05:59 Intake Total 1480 708 456 Output Total 600 750 150 Balance 880 -42 306 Physical Exam - Physical Exam General Appearance: WD/WN, alert, no apparent distress Respiratory: No respiratory distress, No accessory muscle use Skin: normal color, warm/dry Neuro/Psych: alert, normal mood/affect, oriented x 3, abnormal gait ICD10 Worksheet Patient Problems: Problems Problem Status Diagnosed Adenocarcinoma of lung Acute Hyponatremia Acute Inflammatory polyradiculoneuropathy Acute MRSA (methicillin resistant Staphylococcus aureus) Acute UTI (urinary tract infection) Acute
[2016-04-11] MEDS: PATCH REMOVAL 1 EA PATCH TD SCH (22:16)
[2016-04-11] MEDS: ZOLPIDEM TARTRATE 5 MG TAB PO SCH (22:16)
[2016-04-12] MEDS: CYCLOBENZAPRINE 10 MG TAB PO PRN (04:43)
[2016-04-12] MEDS: PRAVASTATIN SODIUM 20 MG TAB PO SCH (09:15)
[2016-04-12] MEDS: ENOXAPARIN 40 MG/0.4 ML SYR SC SCH (09:15)
[2016-04-12] MEDS: LIDOCAINE 5% 1 EA PATCH TD SCH (09:16)
--- NOTE | 2016-04-12 12:43 | SOAPPROG ---
SOAP Progress Note Assessment/Plan: Assessment/ plan: 71yo female with GBS: Doing well overall 04/12, majority of plan below is unchanged with exception of insomnia plan. 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 Improving s/p IVIG. Initial FIM 57 on 03/25/16; improved to 81 as of 04/01/16, and to 86 as of . Progressed from slide-board transfers to squat-pivot. Walking this week has progressed from 8' in parallel bars to ambulating in hallway with FWW. Mod A sit to stand. Continue PT & OT. * HTN/Orthostatic hypotension. Amlodipine (new medication) stopped 03/25/16; lisinopril stopped 03/26/15. No longer orthostatic and BP increasing since since meds were discontinued. If she becomes hypertensive (>140/90) will restart lisinopril. * L shoulder Pain: continue ibuprofen, Beau-freeman 04/07/16; lidocaine patch. * MRSA UTI: Doxycycline competed 03/30. Cont isolation precautions for one year since culture positive. No active Sx/SX of UTI * Urinary retention: Resolved, voiding completely. * N Bowel: incontinence has resolved. * Hyponatremia: resolved, no fluid restriction. * Nutrition: Taking adequate calories and protein. * Dyslipidemia: cont current meds * Insomnia: Was using scheduled zolpidem; tapered from 10 mg QHS to 5 mg QHS starting 04/10/16; tapered melatonin as well; no change in sleep onset or duration. d/c melatonin 04/11/16. As of 04/12/2016, trialing trazodone 25 mg po qhs with repeat if needed. Pt having trouble with early awakening. * DVT PPX: Cont enoxaparin until ambulatory or DC. * Lung nodule: to follow up with oncology on dc. Monitor clinically. * Adjustment to disabilities: pt notes some struggling with emotions, but not impairing her ability to participate in therapies. She is engaging with SW on the issue, and feels supported. no SI. Much improved, working hard. Will need to ascend stairs to reach the living floor of her home. Making good progress; anticipated discharge home expended from 04/19/16 to 04/26/16. 03/25/16 12:59 03/25/16 13:07 03/25/16 13:11 04/12/16 12:36 Subjective: CC: neuro stability and insomnia No acute events overnight but some difficulty sleeping including early awakening , has been experiencing every night lately, going to bed about 11 PM, waking between 3 (last night) and about 5. Ambien has been helpful but not keeping her asleep. Wakes but does not ruminate. Overall doing well otherwise, no new numbness, tingling, weakness, or new neuro changes. Numbness in hands is unchanged as of lately. No new swelling or abdominal discomfort. Objective: Vital Signs Temp Pulse Resp BP Pulse Ox 36.8 C 94 16 102/71 97 04/12/16 08:00 04/12/16 08:00 04/12/16 08:00 04/12/16 08:00 04/12/16 08:00 Laboratory Results 03/23/16 07:30 03/31/16 04:15 04/11/16 04/12/16 04/13/16 05:59 05:59 05:59 Intake Total 708 856 550 Output Total 750 650 Balance -42 206 550 - Time Spent With Patient Time Spent With Patient: 15 min - Pending Discharge Pending Discharge Within 24 Hours: No Pending Discharge Within 48 Hours: No Physical Exam - Physical Exam General Appearance: alert, no apparent distress Respiratory: No respiratory distress, No accessory muscle use, No wheezing Cardiac/Chest: normal peripheral pulses, regular rate, rhythm Abdomen: non-tender, soft Skin: normal color Extremities: No pedal edema, No swelling Neuro/Psych: alert, normal mood/affect, motor weakness (4/5 finger abd bilat), sensory deficit (decreased and abnormal sensation in bilat hands compared to face) ICD10 Worksheet Patient Problems: Problems Problem Status Diagnosed Adenocarcinoma of lung Acute Hyponatremia Acute Impaired mobility and activities of daily living Acute Inflammatory polyradiculoneuropathy Acute MRSA (methicillin resistant Staphylococcus aureus) Acute UTI (urinary tract infection) Acute - ICD10 Problem Qualifiers (1) Impaired mobility and activities of daily living
[2016-04-12] MEDS: traZODone 50 MG TAB PO SCH (21:21)
[2016-04-12] MEDS: PATCH REMOVAL 1 EA PATCH TD SCH (21:38)
[2016-04-13] MEDS: ENOXAPARIN 40 MG/0.4 ML SYR SC SCH (08:39)
[2016-04-13] MEDS: LIDOCAINE 5% 1 EA PATCH TD SCH (08:39)
[2016-04-13] MEDS: PRAVASTATIN SODIUM 20 MG TAB PO SCH (08:40)
--- NOTE | 2016-04-13 17:02 | SOAPPROG ---
SOAP Progress Note Assessment/Plan: 71yo female with GBS: Doing well overall 04/12, majority of plan below is unchanged with exception of insomnia plan. 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 Improving s/p IVIG. Initial FIM 57 on 03/25/16; improved to 81 as of 04/01/16, and to 86 as of . Progressed from slide-board transfers to squat-pivot. Walking this week has progressed from 8' in parallel bars to ambulating in hallway with FWW. Mod A sit to stand. Continue PT & OT. * HTN/Orthostatic hypotension. Amlodipine (new medication) stopped 03/25/16; lisinopril stopped 03/26/15. No longer orthostatic and BP increasing since since meds were discontinued. If she becomes hypertensive (>140/90) will restart lisinopril. * L shoulder Pain: continue ibuprofen, Beau-freeman 04/07/16; lidocaine patch. * MRSA UTI: Doxycycline competed 03/30. Cont isolation precautions for one year since culture positive. No active Sx/SX of UTI * Urinary retention: Resolved, voiding completely. * N Bowel: incontinence has resolved. * Hyponatremia: resolved, no fluid restriction. * Nutrition: Taking adequate calories and protein. * Dyslipidemia: cont current meds * Insomnia: Was using scheduled zolpidem; tapered from 10 mg QHS to 5 mg QHS starting 04/10/16; tapered melatonin as well; no change in sleep onset or duration. d/c melatonin 04/11/16. As of 04/12/2016, trialing trazodone 25 mg po qhs with repeat if needed. Pt having trouble with early awakening. Doing well * DVT PPX: Cont enoxaparin until ambulatory or DC. * Lung nodule: to follow up with oncology on dc. Monitor clinically. * Adjustment to disabilities: pt notes some struggling with emotions, but not impairing her ability to participate in therapies. She is engaging with SW on the issue, and feels supported. no SI. Much improved, working hard. Will need to ascend stairs to reach the living floor of her home. Making good progress; anticipated discharge home 04/26/16. Subjective: No acute events, slept better with trazodone last night. No complaints. denies pain/SOb. Objective: Vital Signs Temp Pulse Resp BP Pulse Ox 36.9 C 84 16 115/68 93 04/13/16 08:00 04/13/16 08:00 04/13/16 08:00 04/13/16 08:00 04/13/16 08:00 Laboratory Results 03/23/16 07:30 03/31/16 04:15 04/12/16 04/13/16 04/14/16 05:59 05:59 05:59 Intake Total 856 1350 596 Output Total 650 Balance 206 1350 596 - Pending Discharge Pending Discharge Within 24 Hours: No Pending Discharge Within 48 Hours: No Physical Exam - Physical Exam General Appearance: alert, no apparent distress Neck: supple Respiratory: lungs clear, normal breath sounds Cardiac/Chest: regular rate, rhythm Abdomen: normal bowel sounds, non-tender, soft Skin: normal color, warm/dry Neuro/Psych: alert, normal mood/affect, oriented x 3 ICD10 Worksheet Patient Problems: Problems Problem Status Diagnosed Adenocarcinoma of lung Acute Hyponatremia Acute Impaired mobility and activities of daily living Acute Inflammatory polyradiculoneuropathy Acute MRSA (methicillin resistant Staphylococcus aureus) Acute UTI (urinary tract infection) Acute
[2016-04-13] MEDS: traZODone 50 MG TAB PO SCH (22:12)
[2016-04-13] MEDS: PATCH REMOVAL 1 EA PATCH TD SCH (22:14)
--- NOTE | 2016-04-14 08:10 | SOAPPROG ---
SOAP Progress Note Assessment/Plan: 71yo female with GBS: Doing well overall 04/12, majority of plan below is unchanged with exception of insomnia plan. 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 Improving s/p IVIG. Initial FIM 57 on 03/25/16; improved to 81 as of 04/01/16, and to 86 as of . Progressed from slide-board transfers to squat-pivot. Walking this week has progressed from 8' in parallel bars to ambulating in hallway with FWW. Mod A sit to stand. Continue PT & OT. * HTN/Orthostatic hypotension. Amlodipine (new medication) stopped 03/25/16; lisinopril stopped 03/26/15. No longer orthostatic and BP increasing since since meds were discontinued. If she becomes hypertensive (>140/90) will restart lisinopril. * L shoulder Pain: continue ibuprofen, Beau-freeman 04/07/16; lidocaine patch. * MRSA UTI: Doxycycline competed 03/30. Cont isolation precautions for one year since culture positive. No active Sx/SX of UTI * Urinary retention: Resolved, voiding completely. * N Bowel: incontinence has resolved. * Hyponatremia: resolved, no fluid restriction. * Nutrition: Taking adequate calories and protein. * Dyslipidemia: cont current meds * Insomnia: Was using scheduled zolpidem; tapered from 10 mg QHS to 5 mg QHS starting 04/10/16; tapered melatonin as well; no change in sleep onset or duration. d/c melatonin 04/11/16. As of 04/12/2016, trialing trazodone 25 mg po qhs with repeat if needed. Seemingly needing 50mg, but improved sleep * DVT PPX: Cont enoxaparin until ambulatory or DC. * Lung nodule: to follow up with oncology on dc. Monitor clinically. * Adjustment to disabilities: pt notes some struggling with emotions, but not impairing her ability to participate in therapies. She is engaging with SW on the issue, and feels supported. no SI. Much improved, working hard. Will need to ascend stairs to reach the living floor of her home. Making good progress; anticipated discharge home 04/26/16. Subjective: no acute events. slightly harder time with sleep initiation last night but with second dose of trazodone did well. no complaints. denies chills/dysuria. Objective: Vital Signs Temp Pulse Resp BP Pulse Ox 37.4 C 80 18 121/76 H 92 04/14/16 07:39 04/14/16 07:39 04/14/16 07:39 04/14/16 07:39 04/14/16 07:39 Laboratory Results 03/23/16 07:30 03/31/16 04:15 04/13/16 04/14/16 04/15/16 05:59 05:59 05:59 Intake Total 1350 1232 Output Total 550 Balance 1350 682 - Pending Discharge Pending Discharge Within 24 Hours: No Pending Discharge Within 48 Hours: No Physical Exam - Physical Exam General Appearance: alert, no apparent distress Neck: supple Respiratory: lungs clear, normal breath sounds Cardiac/Chest: regular rate, rhythm Abdomen: normal bowel sounds, non-tender, soft Skin: normal color, warm/dry Neuro/Psych: alert, normal mood/affect, oriented x 3 ICD10 Worksheet Patient Problems: Problems Problem Status Diagnosed Adenocarcinoma of lung Acute Hyponatremia Acute Impaired mobility and activities of daily living Acute Inflammatory polyradiculoneuropathy Acute MRSA (methicillin resistant Staphylococcus aureus) Acute UTI (urinary tract infection) Acute
[2016-04-14] MEDS: LIDOCAINE 5% 1 EA PATCH TD SCH (08:36)
[2016-04-14] MEDS: ENOXAPARIN 40 MG/0.4 ML SYR SC SCH (08:36)
[2016-04-14] MEDS: PRAVASTATIN SODIUM 20 MG TAB PO SCH (08:37)
[2016-04-14] MEDS: IBUPROFEN 600 MG TAB PO PRN (08:47)
[2016-04-14] MEDS: traZODone 50 MG TAB PO SCH (22:07)
[2016-04-14] MEDS: traZODone 50 MG TAB PO PRN (22:08)
[2016-04-14] MEDS: PATCH REMOVAL 1 EA PATCH TD SCH (22:28)
[2016-04-15] MEDS: ENOXAPARIN 40 MG/0.4 ML SYR SC SCH (08:39)
[2016-04-15] MEDS: LIDOCAINE 5% 1 EA PATCH TD SCH (08:39)
[2016-04-15] MEDS: PRAVASTATIN SODIUM 20 MG TAB PO SCH (08:40)
--- NOTE | 2016-04-15 13:45 | SOAPPROG ---
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 Improving s/p IVIG. Initial FIM 57 on 03/25/16; improved to 81 as of 04/01/16, to 86 as of 04/08/16, and to 89 as of 04/15/16. FIM score for mobility declined because she progressed from modified independent in wheelchair to moderate assist ambulating. Continue PT & OT. * Neuropathic symptoms B feet with loss of sensation: treatment related fluctuation s/p IVIG? D/W Dr. Lopez, [facility] [place]. Would be much more concerned if she had motor fluctuation; would readmit and consult with neuromuscular specialist. Advises continues observation. * HTN/Orthostatic hypotension. Amlodipine (new medication) stopped 03/25/16; lisinopril stopped 03/26/15. No longer orthostatic and BP increasing since since meds were discontinued. If she becomes hypertensive (>140/90) will restart lisinopril. * L shoulder Pain: continue ibuprofen, Beau-freeman 04/07/16; lidocaine patch. * MRSA UTI: Doxycycline competed 03/30. Cont isolation precautions for one year since culture positive. No active Sx/SX of UTI * Urinary retention: Resolved, voiding completely. * N Bowel: incontinence has resolved. * Hyponatremia: resolved, no fluid restriction. * Nutrition: Taking adequate calories and protein. * Dyslipidemia: cont current meds * Insomnia: Using trazodone 50 mg QHS. Sleeping well. * DVT PPX: Cont enoxaparin until ambulatory or DC. * Lung nodule: to follow up with oncology on dc. Monitor clinically. * Adjustment to disabilities: pt notes some struggling with emotions, but not impairing her ability to participate in therapies. She is engaging with SW on the issue, and feels supported. no SI. Much improved, working hard. Attended staffing, 15 min. D/W case mgmt, nursing, PT, OT. Will need to ascend stairs to reach the living floor of her home. Making good progress; anticipated discharge home 04/26/16. PCP is Alicja Johnson. Neurologist at [facility] [place] Crispin Lopez 04/15/16 13:57 Subjective: C/O loss of sensation in feet since this morning. Also has tingling. Denies increased weakness of difficulty ambulating. No f/c, cough, dyspnea, n/v/c/d. Objective: Vital Signs Temp Pulse Resp BP Pulse Ox 36.7 C 79 18 120/81 H 94 04/15/16 06:46 04/15/16 06:46 04/15/16 06:46 04/15/16 06:46 04/15/16 06:46 Laboratory Results 03/23/16 07:30 03/31/16 04:15 04/14/16 04/15/16 04/16/16 05:59 05:59 05:59 Intake Total 1232 1236 236 Output Total 550 400 Balance 682 836 236 - Time Spent With Patient Time Spent With Patient: Greater than 35 minutes floor time today, including more than 50% of time in coordination of care during staffing meeting, and counseling patient. Physical Exam - Physical Exam General Appearance: WD/WN, alert, no apparent distress Respiratory: normal breath sounds, No crackles, No rhonchi, No wheezing Cardiac/Chest: regular rate, rhythm, No edema Skin: normal color, warm/dry Neuro/Psych: alert, normal mood/affect, oriented x 3, abnormal gait (Observed ambulating with PT, with considerable use of FWW for support.), motor weakness ICD10 Worksheet Patient Problems: Problems Problem Status Diagnosed Adenocarcinoma of lung Acute Hyponatremia Acute Impaired mobility and activities of daily living Acute Inflammatory polyradiculoneuropathy Acute MRSA (methicillin resistant Staphylococcus aureus) Acute UTI (urinary tract infection) Acute
[2016-04-15] MEDS: IBUPROFEN 600 MG TAB PO PRN (17:53)
[2016-04-15] MEDS: traZODone 50 MG TAB PO PRN (21:40)
[2016-04-15] MEDS: traZODone 50 MG TAB PO SCH (21:40)
[2016-04-15] MEDS: PATCH REMOVAL 1 EA PATCH TD SCH (23:26)
[2016-04-16] MEDS: IBUPROFEN 600 MG TAB PO PRN (06:06)
[2016-04-16] MEDS: PATCH REMOVAL 1 EA PATCH TD SCH ×2 (06:35→22:23)
[2016-04-16] MEDS: PRAVASTATIN SODIUM 20 MG TAB PO SCH (10:47)
[2016-04-16] MEDS: ENOXAPARIN 40 MG/0.4 ML SYR SC SCH (10:47)
[2016-04-16] MEDS: LIDOCAINE 5% 1 EA PATCH TD SCH (10:48)
--- NOTE | 2016-04-16 15:30 | SOAPPROG ---
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 Improving s/p IVIG. Initial FIM 57 on 03/25/16; improved to 81 as of 04/01/16, to 86 as of 04/08/16, and to 89 as of 04/15/16. FIM score for mobility declined because she progressed from modified independent in wheelchair to moderate assist ambulating. Continue PT & OT. * Neuropathic symptoms B feet with loss of sensation: treatment related fluctuation s/p IVIG? D/W Dr. Lopez, [facility] [place]. Would be much more concerned if she had motor fluctuation; would readmit and consult with neuromuscular specialist. Advises continues observation. * HTN/Orthostatic hypotension. Amlodipine (new medication) stopped 03/25/16; lisinopril stopped 03/26/15. No longer orthostatic and BP increasing since since meds were discontinued. If she becomes hypertensive (>140/90) will restart lisinopril. * L shoulder Pain: continue ibuprofen, Beau-freeman 04/07/16; lidocaine patch. * MRSA UTI: Doxycycline competed 03/30. Cont isolation precautions for one year since culture positive. No active Sx/SX of UTI * Urinary retention: Resolved, voiding completely. * N Bowel: incontinence has resolved. * Hyponatremia: resolved, no fluid restriction. * Nutrition: Taking adequate calories and protein. * Dyslipidemia: cont current meds * Insomnia: Using trazodone 50 mg QHS. Sleeping well. * DVT PPX: Cont enoxaparin until ambulatory or DC. * Lung nodule: to follow up with oncology on dc. Monitor clinically. * Adjustment to disabilities: pt notes some struggling with emotions, but not impairing her ability to participate in therapies. She is engaging with SW on the issue, and feels supported. no SI. Much improved, working hard. Will need to ascend stairs to reach the living floor of her home. Making good progress; anticipated discharge home 04/26/16. PCP is Alicja Johnson. [place]rologist at [facility] [place] Crispin Lopez 04/16/16 15:30 Subjective: No complaints. Climbed and descended stairs today. No more shoulder pain. Walking farther. Still with numbness B heels and ankle but no new weakness. Objective: Vital Signs Temp Pulse Resp BP Pulse Ox 36.8 C 79 16 116/76 94 04/16/16 06:11 04/16/16 06:11 04/16/16 06:11 04/16/16 06:11 04/16/16 06:11 Laboratory Results 03/23/16 07:30 03/31/16 04:15 04/15/16 04/16/16 04/17/16 05:59 05:59 05:59 Intake Total 1236 1486 720 Output Total 400 700 450 Balance 836 786 270 Physical Exam - Physical Exam General Appearance: WD/WN, alert, no apparent distress Respiratory: No respiratory distress, No accessory muscle use Skin: normal color, warm/dry Neuro/Psych: alert, normal mood/affect, oriented x 3, motor weakness (B legs selina resisting hyperextension of knee on R as she walks.) ICD10 Worksheet Patient Problems: Problems Problem Status Diagnosed Adenocarcinoma of lung Acute Hyponatremia Acute Impaired mobility and activities of daily living Acute Inflammatory polyradiculoneuropathy Acute MRSA (methicillin resistant Staphylococcus aureus) Acute UTI (urinary tract infection) Acute
[2016-04-16] MEDS: traZODone 50 MG TAB PO SCH (22:00)
[2016-04-17] MEDS ORDERED: LIDOCAINE 5% 1 EA PATCH TD PRN (08:59)
[2016-04-17] MEDS: ENOXAPARIN 40 MG/0.4 ML SYR SC SCH (09:10)
[2016-04-17] MEDS: PRAVASTATIN SODIUM 20 MG TAB PO SCH (09:10)
[2016-04-17] MEDS: IBUPROFEN 600 MG TAB PO PRN ×2 (09:19→18:25)
--- NOTE | 2016-04-17 12:49 | SOAPPROG ---
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 Improving s/p IVIG. Initial FIM 57 on 03/25/16; improved to 81 as of 04/01/16, to 86 as of 04/08/16, and to 89 as of 04/15/16. FIM score for mobility declined because she progressed from modified independent in wheelchair to moderate assist ambulating. Continue PT & OT. * Neuropathic symptoms B feet with loss of sensation: treatment related fluctuation s/p IVIG? D/[place]. [place] [facility] [place] Would be much more concerned if she had motor fluctuation; would readmit and consult with neuromuscular specialist. Advises continues observation. * HTN/Orthostatic hypotension. Amlodipine (new medication) stopped 03/25/16; lisinopril stopped 03/26/15. No longer orthostatic and BP increasing since since meds were discontinued. If she becomes hypertensive (>140/90) will restart lisinopril. * L shoulder Pain: continue ibuprofen, Beau-freeman 04/07/16; lidocaine patch changed to PRN on 04/16/15; pain has not worsened. * MRSA UTI: Doxycycline competed 03/30. Cont isolation precautions for one year since culture positive. No active Sx/SX of UTI * Urinary retention: Resolved, voiding completely. * N Bowel: incontinence has resolved. * Hyponatremia: resolved, no fluid restriction. * Nutrition: Taking adequate calories and protein. * Dyslipidemia: cont current meds * Insomnia: Using trazodone 50 mg QHS. Sleeping well. * DVT PPX: Cont enoxaparin until ambulatory or DC. * Lung nodule: to follow up with oncology on dc. Monitor clinically. * Adjustment to disabilities: pt notes some struggling with emotions, but not impairing her ability to participate in therapies. She is engaging with SW on the issue, and feels supported. no SI. Much improved, working hard. Will need to ascend stairs to reach the living floor of her home. Making good progress; anticipated discharge home 04/26/16. PCP is Alicja Johnson. [place] [facility] [place] Crispin Lopez 04/17/16 12:51 Subjective: Heel/ankle numbness progressed to L calf; unchanged on R. Also reports swelling LLE, improved after therapies with stretching etc. No weakness. Objective: Vital Signs Temp Pulse Resp BP Pulse Ox 36.8 C 82 18 113/72 92 04/17/16 07:05 04/17/16 07:05 04/17/16 07:05 04/17/16 07:05 04/17/16 07:05 Laboratory Results 03/23/16 07:30 03/31/16 04:15 04/16/16 04/17/16 04/18/16 05:59 05:59 05:59 Intake Total 1486 2120 236 Output Total 700 800 Balance 786 1320 236 Physical Exam - Physical Exam General Appearance: WD/WN, alert, no apparent distress Respiratory: No respiratory distress, No accessory muscle use Skin: normal color, warm/dry Extremities: pedal edema (trace L lower leg/ankle), No calf tenderness Neuro/Psych: alert, normal mood/affect, oriented x 3, sensory deficit ( Sensation absent to light palpation L calf) ICD10 Worksheet Patient Problems: Problems Problem Status Diagnosed Adenocarcinoma of lung Acute Hyponatremia Acute Impaired mobility and activities of daily living Acute Inflammatory polyradiculoneuropathy Acute MRSA (methicillin resistant Staphylococcus aureus) Acute UTI (urinary tract infection) Acute
[2016-04-17] MEDS: traZODone 50 MG TAB PO SCH (22:09)
[2016-04-17] MEDS: PATCH REMOVAL 1 EA PATCH TD SCH (22:39)
[2016-04-18] MEDS: PRAVASTATIN SODIUM 20 MG TAB PO SCH (08:59)
[2016-04-18] MEDS: ENOXAPARIN 40 MG/0.4 ML SYR SC SCH (08:59)
--- NOTE | 2016-04-18 11:44 | SOAPPROG ---
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 Improving s/p IVIG. Initial FIM 57 on 03/25/16; improved to 81 as of 04/01/16, to 86 as of 04/08/16, and to 89 as of 04/15/16. FIM score for mobility declined because she progressed from modified independent in wheelchair to moderate assist ambulating. Continue PT & OT. * Neuropathic symptoms B feet with loss of sensation: treatment related fluctuation s/p IVIG? D/W Dr. Lopez, [facility] [place] neurolog[place]. Would be much more concerned if she had motor fluctuation; would readmit and consult with neuromuscular specialist. Advises continues observation. * Ankle swelling: suggested she address with OT re ankle positioning with ambulation. Cold pack PRN, as well as ibuprofen. * HTN/Orthostatic hypotension. Amlodipine (new medication) stopped 03/25/16; lisinopril stopped 03/26/15. No longer orthostatic and BP increasing since since meds were discontinued. If she becomes hypertensive (>140/90) will restart lisinopril. * L shoulder Pain: resolved. * MRSA UTI: Doxycycline competed 03/30. Cont isolation precautions for one year since culture positive. No active Sx/SX of UTI * Urinary retention: Resolved, voiding completely. * N Bowel: incontinence has resolved. * Hyponatremia: resolved, no fluid restriction. * Nutrition: Taking adequate calories and protein. * Dyslipidemia: cont current meds * Insomnia: Using trazodone 50 mg QHS. Sleeping well. * DVT PPX: Cont enoxaparin until ambulatory or DC. * Lung nodule: to follow up with oncology on dc. Monitor clinically. * Adjustment to disabilities: pt notes some struggling with emotions, but not impairing her ability to participate in therapies. She is engaging with SW on the issue, and feels supported. no SI. Much improved, working hard. Will need to ascend stairs to reach the living floor of her home. Making good progress; anticipated discharge home 04/26/16. PCP is Alicja Johnson. Neurologist at [facility] [place] Crispin Lopez 04/18/16 11:42 Subjective: No progression of LE numbness. No weakness. Notes swellin gL ankle and some pain; took ibuprofen last night. Objective: Vital Signs Temp Pulse Resp BP Pulse Ox 36.7 C 82 18 119/80 93 04/18/16 07:45 04/18/16 07:45 04/18/16 07:45 04/18/16 07:45 04/18/16 07:45 Laboratory Results 03/23/16 07:30 03/31/16 04:15 04/17/16 04/18/16 04/19/16 05:59 05:59 05:59 Intake Total 2120 1536 300 Output Total 800 300 Balance 1320 1236 300 Physical Exam - Physical Exam General Appearance: WD/WN, alert, no apparent distress Respiratory: No respiratory distress, No accessory muscle use Cardiac/Chest: No edema Skin: normal color, warm/dry Extremities: swelling (L ankle selina lateral just distal to malleolus) Neuro/Psych: alert, normal mood/affect, oriented x 3 ICD10 Worksheet Patient Problems: Problems Problem Status Diagnosed Adenocarcinoma of lung Acute Hyponatremia Acute Impaired mobility and activities of daily living Acute Inflammatory polyradiculoneuropathy Acute MRSA (methicillin resistant Staphylococcus aureus) Acute UTI (urinary tract infection) Acute
[2016-04-18] MEDS: IBUPROFEN 600 MG TAB PO PRN ×2 (12:08→22:07)
[2016-04-18] MEDS: PATCH REMOVAL 1 EA PATCH TD SCH (21:09)
[2016-04-18] MEDS: traZODone 50 MG TAB PO SCH (22:07)
[2016-04-19] MEDS: PRAVASTATIN SODIUM 20 MG TAB PO SCH (08:37)
[2016-04-19] MEDS: IBUPROFEN 600 MG TAB PO PRN ×2 (08:37→21:57)
[2016-04-19] MEDS: ENOXAPARIN 40 MG/0.4 ML SYR SC SCH (08:37)
--- NOTE | 2016-04-19 13:07 | SOAPPROG ---
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 Improving s/p IVIG. Initial FIM 57 on 03/25/16; improved to 81 as of 04/01/16, to 86 as of 04/08/16, and to 89 as of 04/15/16. FIM score for mobility declined because she progressed from modified independent in wheelchair to moderate assist ambulating. Continue PT & OT. * Neuropathic symptoms B feet with loss of sensation: treatment related fluctuation s/p IVIG? D/W Dr. Lopez, [facility] [place]. Would be much more concerned if she had motor fluctuation; would readmit and consult with neuromuscular specialist. Advises continues observation. * Ankle swelling: suggested she address with OT re ankle positioning with ambulation. Cold pack PRN, as well as ibuprofen. * HTN/Orthostatic hypotension. Amlodipine (new medication) stopped 03/25/16; lisinopril stopped 03/26/15. No longer orthostatic and BP increasing since since meds were discontinued. If she becomes hypertensive (>140/90) will restart lisinopril. * L shoulder Pain: resolved. * MRSA UTI: Doxycycline competed 03/30. Cont isolation precautions for one year since culture positive. No active Sx/SX of UTI * Urinary retention: Resolved, voiding completely. * N Bowel: incontinence has resolved. * Hyponatremia: resolved, no fluid restriction. * Nutrition: Taking adequate calories and protein. * Dyslipidemia: cont current meds * Insomnia: Using trazodone 50 mg QHS. Sleeping well. * DVT PPX: Cont enoxaparin until ambulatory or DC. * Lung nodule: to follow up with oncology on dc. Monitor clinically. * Adjustment to disabilities: pt notes some struggling with emotions, but not impairing her ability to participate in therapies. She is engaging with SW on the issue, and feels supported. no SI. Much improved, working hard. Will need to ascend stairs to reach the living floor of her home. Making good progress; anticipated discharge home 04/26/16. PCP is Alicja Johnson. Neurologist at [facility] [place] Crispin Lopez 04/19/16 13:08 Subjective: C/O leg numbness extending upward into L calf. Not aware of new weakness. O/W w/out complaint. Objective: Vital Signs Temp Pulse Resp BP Pulse Ox 36.5 C 76 16 120/77 94 04/19/16 06:36 04/19/16 06:36 04/19/16 06:36 04/19/16 06:36 04/19/16 06:36 Laboratory Results 03/23/16 07:30 03/31/16 04:15 04/18/16 04/19/16 04/20/16 05:59 05:59 05:59 Intake Total 1536 1786 1340 Output Total 300 500 Balance 1236 1286 1340 Physical Exam - Physical Exam General Appearance: WD/WN, alert, no apparent distress Respiratory: No respiratory distress, No accessory muscle use Cardiac/Chest: No edema Skin: normal color, warm/dry Extremities: swelling (minimal swelling lateral L ankle), No calf tenderness Neuro/Psych: alert, normal mood/affect, oriented x 3 ICD10 Worksheet Patient Problems: Problems Problem Status Diagnosed Adenocarcinoma of lung Acute Hyponatremia Acute Impaired mobility and activities of daily living Acute Inflammatory polyradiculoneuropathy Acute MRSA (methicillin resistant Staphylococcus aureus) Acute UTI (urinary tract infection) Acute
[2016-04-19] MEDS: PATCH REMOVAL 1 EA PATCH TD SCH (21:33)
[2016-04-19] MEDS: traZODone 50 MG TAB PO SCH (21:57)
[2016-04-20] MEDS: PRAVASTATIN SODIUM 20 MG TAB PO SCH (07:48)
[2016-04-20] MEDS: ENOXAPARIN 40 MG/0.4 ML SYR SC SCH (07:48)
[2016-04-20] MEDS: IBUPROFEN 600 MG TAB PO PRN ×2 (07:48→21:58)
--- NOTE | 2016-04-20 12:15 | SOAPPROG ---
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 Improving s/p IVIG. Initial FIM 57 on 03/25/16; improved to 81 as of 04/01/16, to 86 as of 04/08/16, and to 89 as of 04/15/16. FIM score for mobility declined because she progressed from modified independent in wheelchair to moderate assist ambulating. Continue PT & OT. * Neuropathic symptoms B feet with loss of sensation: She reports her numbness started in her heels and has spread up to the ankles over past several days. She does not report increased weakness or increased difficulty with proprioception. This was also confirmed by her physical therapist. Provided reassurance to patient and will continue to closely monitor her sxs for increased weakness and respiratory dysfunction. Dr. Lopez, [facility] [place] neurolog[place] , previously advised of this by Dr Ling. Would be much more concerned if she had motor fluctuation; would readmit and consult with neuromuscular specialist. Advises continues observation. * Ankle swelling: suggested she address with OT re ankle positioning with ambulation. Cold pack PRN, as well as ibuprofen. * HTN/Orthostatic hypotension. Amlodipine (new medication) stopped 03/25/16; lisinopril stopped 03/26/15. No longer orthostatic and BP increasing since since meds were discontinued. If she becomes hypertensive (>140/90) will restart lisinopril. * L shoulder Pain: resolved. * MRSA UTI: Doxycycline competed 03/30. Cont isolation precautions for one year since culture positive. No active Sx/SX of UTI * Urinary retention: Resolved, voiding completely. * N Bowel: incontinence has resolved. * Hyponatremia: resolved, no fluid restriction. * Nutrition: Taking adequate calories and protein. * Dyslipidemia: cont current meds * Insomnia: Using trazodone 50 mg QHS. Sleeping well. * DVT PPX: Cont enoxaparin until ambulatory or DC. * Lung nodule: to follow up with oncology on dc. Monitor clinically. * Adjustment to disabilities: pt notes some struggling with emotions, but not impairing her ability to participate in therapies. She is engaging with SW on the issue, and feels supported. no SI. Much improved, working hard. Will need to ascend stairs to reach the living floor of her home. Making good progress; anticipated discharge home 04/26/16. 03/30/16 10:20 03/30/16 10:24 03/31/16 11:53 04/20/16 12:11 04/20/16 12:19 Subjective: She is concerned that her foot numbness has spread form her feet to her ankles over thepast several days. She denies increased LE weakness. Objective: Vital Signs Temp Pulse Resp BP Pulse Ox 36.7 C 81 16 125/75 H 93 04/20/16 07:40 04/20/16 07:40 04/20/16 07:40 04/20/16 07:40 04/20/16 07:40 Laboratory Results 03/23/16 07:30 03/31/16 04:15 04/19/16 04/20/16 04/21/16 05:59 05:59 05:59 Intake Total 1786 2340 520 Output Total 500 Balance 1286 2340 520 Physical Exam - Physical Exam General Appearance: WD/WN, alert, no apparent distress EENT: PERRL/EOMI Respiratory: chest non-tender, lungs clear Cardiac/Chest: No edema Skin: normal color, warm/dry Extremities: normal range of motion (WFLs UE/LE) Neuro/Psych: alert, normal mood/affect, oriented x 3 (Grossly nl UE and LE motoe exam. No detectable weakness of ankle dorsiflexors. ) ICD10 Worksheet Patient Problems: Problems Problem Status Diagnosed Adenocarcinoma of lung Acute Hyponatremia Acute Impaired mobility and activities of daily living Acute Inflammatory polyradiculoneuropathy Acute MRSA (methicillin resistant Staphylococcus aureus) Acute UTI (urinary tract infection) Acute
[2016-04-20] MEDS: traZODone 50 MG TAB PO SCH (21:57)
[2016-04-20] MEDS: PATCH REMOVAL 1 EA PATCH TD SCH (22:06)
[2016-04-21] MEDS: IBUPROFEN 600 MG TAB PO PRN (08:20)
[2016-04-21] MEDS: ENOXAPARIN 40 MG/0.4 ML SYR SC SCH (08:21)
[2016-04-21] MEDS: PRAVASTATIN SODIUM 20 MG TAB PO SCH (08:26)
--- NOTE | 2016-04-21 10:46 | SOAPPROG ---
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 Improving s/p IVIG. Initial FIM 57 on 03/25/16; improved to 81 as of 04/01/16, to 86 as of 04/08/16, and to 89 as of 04/15/16. FIM score for mobility declined because she progressed from modified independent in wheelchair to moderate assist ambulating. Continue PT & OT. * Neuropathic symptoms B feet with loss of sensation: Unchanged past few days. She reports her numbness started in her heels and has spread up to the ankles over past several days. She does not report increased weakness or increased difficulty with proprioception. This was also confirmed by her physical therapist. Provided reassurance to patient and will continue to closely monitor her sxs for increased weakness and respiratory dysfunction. Dr. Lopez, [facility] [place] neurolog[place], previously advised of this by Dr Ling. Would be much more concerned if she had motor fluctuation; would readmit and consult with neuromuscular specialist. Advises continues observation. * Ankle swelling: suggested she address with OT re ankle positioning with ambulation. Cold pack PRN, as well as ibuprofen. * HTN/Orthostatic hypotension. No episodes reported.Amlodipine (new medication) stopped 03/25/16; lisinopril stopped 03/26/15. No longer orthostatic and BP increasing since since meds were discontinued. If she becomes hypertensive (> 140/90) will restart lisinopril. * L shoulder Pain: resolved. * MRSA UTI: Doxycycline competed 03/30. Cont isolation precautions for one year since culture positive. No active Sx/SX of UTI * Urinary retention: Resolved, voiding completely. * N Bowel: incontinence has resolved. * Hyponatremia: resolved, no fluid restriction. * Nutrition: Taking adequate calories and protein. * Dyslipidemia: cont current meds * Insomnia: Using trazodone 50 mg QHS. Sleeping well. * DVT PPX: Cont enoxaparin until ambulatory or DC. * Lung nodule: to follow up with oncology on dc. Monitor clinically. * Adjustment to disabilities: pt notes some struggling with emotions, but not impairing her ability to participate in therapies. She is engaging with SW on the issue, and feels supported. no SI. Much improved, working hard. Will need to ascend stairs to reach the living floor of her home. Making good progress; anticipated discharge home 04/26/16. 03/30/16 10:20 03/30/16 10:24 03/31/16 11:53 04/20/16 12:11 04/20/16 12:19 04/21/16 10:46 Subjective: The numbness in her feet have not progressed. She denies new weakness in UE or LEs. Denies JACOB or visual disturbance. Objective: Vital Signs Temp Pulse Resp BP Pulse Ox 36.4 C 70 16 96/51 L 93 04/21/16 07:34 04/21/16 07:34 04/21/16 07:34 04/21/16 07:34 04/21/16 07:34 Laboratory Results 03/23/16 07:30 03/31/16 04:15 04/20/16 04/21/16 04/22/16 05:59 05:59 05:59 Intake Total 2340 2120 540 Balance 2340 2120 540 Physical Exam - Physical Exam General Appearance: WD/WN, alert, no apparent distress Neck: full range of motion Respiratory: lungs clear Cardiac/Chest: regular rate, rhythm, No edema, No JVD Abdomen: non-tender, soft, other (No suprapubic tenderness) Skin: normal color, warm/dry, No diaphoresis Extremities: No pedal edema, No calf tenderness, No Felecia's sign Neuro/Psych: normal mood/affect, other (4/5 right and left hip flexors, 4+/5 R/ L QUADS,HS,TA) ICD10 Worksheet Patient Problems: Problems Problem Status Diagnosed Adenocarcinoma of lung Acute Hyponatremia Acute Impaired mobility and activities of daily living Acute Inflammatory polyradiculoneuropathy Acute MRSA (methicillin resistant Staphylococcus aureus) Acute UTI (urinary tract infection) Acute
[2016-04-21] MEDS: PATCH REMOVAL 1 EA PATCH TD SCH (19:34)
[2016-04-21] MEDS: traZODone 50 MG TAB PO SCH (22:08)
[2016-04-22] MEDS: IBUPROFEN 600 MG TAB PO PRN (07:34)
[2016-04-22] MEDS: PRAVASTATIN SODIUM 20 MG TAB PO SCH (07:34)
[2016-04-22] MEDS: ENOXAPARIN 40 MG/0.4 ML SYR SC SCH (07:34)
--- NOTE | 2016-04-22 13:32 | SOAPPROG ---
SOAP Progress Note Assessment/Plan: Assessment/ plan: 71yo female with GBS, lung nodule, mobility and self care impairments: on 2016 doing well overall, stable sensory deficits per her report, no new weakness. Medical plan relatively unchanged below. 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 Improving s/p IVIG. Initial FIM 57 on 03/25/16; improved to 81 as of 04/01/16, to 86 as of 04/08/16, and to 89 as of 04/15/16. FIM score for mobility declined because she progressed from modified independent in wheelchair to moderate assist ambulating. Continue PT & OT. * Neuropathic symptoms B feet with loss of sensation: Unchanged. She does not report increased weakness, stable proprioceptive deficits. This was also confirmed by her physical therapist. Provided reassurance to patient and will continue to closely monitor her sxs for increased weakness and respiratory dysfunction. Dr. Lopez, [facility] [place] neurologist, previously advised of this by Dr Ling. Would be much more concerned if she had motor fluctuation; would readmit and consult with neuromuscular specialist. Advises continues observation. * Ankle swelling: suggested she address with OT re ankle positioning with ambulation. Cold pack PRN, as well as ibuprofen. * HTN/Orthostatic hypotension. No episodes reported. Amlodipine (new medication ) stopped 03/25/16; lisinopril stopped 03/26/15. No longer orthostatic and BP increasing since since meds were discontinued. If she becomes hypertensive (> 140/90) will restart lisinopril. * L shoulder Pain: resolved. * MRSA UTI: Doxycycline competed 03/30. Cont isolation precautions for one year since culture positive. No active Sx/SX of UTI * Urinary retention: Resolved, voiding completely. * N Bowel: incontinence has resolved. * Hyponatremia: resolved, no fluid restriction. * Nutrition: Taking adequate calories and protein. * Dyslipidemia: cont current meds * Insomnia: Using trazodone 50 mg QHS. Sleeping well. * DVT PPX: Cont enoxaparin until ambulatory or DC. * Lung nodule: to follow up with oncology on dc. Monitor clinically. * Adjustment to disabilities: pt notes some struggling with emotions, but not impairing her ability to participate in therapies. She is engaging with SW on the issue, and feels supported. no SI. Much improved, working hard. Will need to ascend stairs to reach the living floor of her home. Making good progress; anticipated discharge home 04/26/16. Subjective: CC: neurological stability No acute events overnight. She expressed concern about her recovery and possible recurrence of symptoms. Stable sensory deficits including proprioception, no new weakness. Reassured of plan to f/u with neuro on dc. Sleeping well, no other concerns. Objective: Vital Signs Temp Pulse Resp BP Pulse Ox 36.7 C 78 16 133/76 H 95 04/22/16 06:44 04/22/16 06:44 04/22/16 06:44 04/22/16 06:44 04/22/16 06:44 Laboratory Results 03/23/16 07:30 03/31/16 04:15 04/21/16 04/22/16 04/23/16 05:59 05:59 05:59 Intake Total 2120 1640 Balance 212 1640 Physical Exam - Physical Exam General Appearance: alert, no apparent distress Respiratory: No respiratory distress, No accessory muscle use Cardiac/Chest: regular rate, rhythm Skin: normal color, warm/dry Extremities: No pedal edema, No swelling Neuro/Psych: alert, sensory deficit (Poor LT sensation bilat feet. ), other ( anxious affect) ICD10 Worksheet Patient Problems: Problems Problem Status Diagnosed Adenocarcinoma of lung Acute Hyponatremia Acute Impaired mobility and activities of daily living Acute Inflammatory polyradiculoneuropathy Acute MRSA (methicillin resistant Staphylococcus aureus) Acute UTI (urinary tract infection) Acute - ICD10 Problem Qualifiers (1) Impaired mobility and activities of daily living
[2016-04-22] MEDS: traZODone 50 MG TAB PO SCH (22:01)
[2016-04-22] MEDS: PATCH REMOVAL 1 EA PATCH TD SCH (22:06)
[2016-04-23] MEDS: PRAVASTATIN SODIUM 20 MG TAB PO SCH (08:02)
[2016-04-23] MEDS: ENOXAPARIN 40 MG/0.4 ML SYR SC SCH (08:02)
[2016-04-23] MEDS: IBUPROFEN 600 MG TAB PO PRN (08:03)
--- NOTE | 2016-04-23 11:20 | SOAPPROG ---
SOAP Progress Note Assessment/Plan: Assessment/ plan: 71yo female with GBS, lung nodule, mobility and self care impairments: on 2016 she is participating in therapies, no new neuro changes. Continue plan below. Sleeping well, no change to trazodone. 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 Improving s/p IVIG. Initial FIM 57 on 03/25/16; improved to 81 as of 04/01/16, to 86 as of 04/08/16, and to 89 as of 04/15/16. FIM score for mobility declined because she progressed from modified independent in wheelchair to moderate assist ambulating. Continue PT & OT. * Neuropathic symptoms B feet with loss of sensation: Unchanged. She does not report increased weakness, stable proprioceptive deficits. This was also confirmed by her physical therapist. Provided reassurance to patient and will continue to closely monitor her sxs for increased weakness and respiratory dysfunction. Dr. Lopez, [facility] [place] neurologist, previously advised of this by Dr Ling. Would be much more concerned if she had motor fluctuation; would readmit and consult with neuromuscular specialist. Advises continues observation. * Ankle swelling: suggested she address with OT re ankle positioning with ambulation. Cold pack PRN, as well as ibuprofen. * HTN/Orthostatic hypotension. No episodes reported. Amlodipine (new medication ) stopped 03/25/16; lisinopril stopped 03/26/15. No longer orthostatic and BP increasing since since meds were discontinued. If she becomes hypertensive (> 140/90) will restart lisinopril. * L shoulder Pain: resolved. * MRSA UTI: Doxycycline competed 03/30. Cont isolation precautions for one year since culture positive. No active Sx/SX of UTI * Urinary retention: Resolved, voiding completely. * N Bowel: incontinence has resolved. * Hyponatremia: resolved, no fluid restriction. * Nutrition: Taking adequate calories and protein. * Dyslipidemia: cont current meds * Insomnia: Using trazodone 50 mg QHS. Sleeping well. * DVT PPX: Cont enoxaparin until ambulatory or DC. * Lung nodule: to follow up with oncology on dc. Monitor clinically. * Adjustment to disabilities: pt notes some struggling with emotions, but not impairing her ability to participate in therapies. She is engaging with SW on the issue, and feels supported. no SI. Much improved, working hard. Will need to ascend stairs to reach the living floor of her home. Making good progress; anticipated discharge home 04/26/16. 04/23/16 11:18 Subjective: CC: neuro stability No acute events overnight. Slept well, no new numbness, tingling, or weakness. Participating well in therapies, no questions today. Objective: Vital Signs Temp Pulse Resp BP Pulse Ox 36.6 C 86 16 123/80 H 93 04/23/16 07:03 04/23/16 07:03 04/23/16 07:03 04/23/16 07:03 04/23/16 07:03 Laboratory Results 03/23/16 07:30 03/31/16 04:15 04/22/16 04/23/16 04/24/16 05:59 05:59 05:59 Intake Total 1640 360 540 Balance 1640 360 540 Physical Exam - Physical Exam General Appearance: alert, no apparent distress Respiratory: No respiratory distress, No accessory muscle use Cardiac/Chest: regular rate, rhythm, No edema Skin: normal color, warm/dry Neuro/Psych: alert, other (ADF 4/5 bilat, decreased sensation in bilat hands compared to face. similar bilat) ICD10 Worksheet Patient Problems: Problems Problem Status Onset Adenocarcinoma of lung Acute Hyponatremia Acute Impaired mobility and activities of daily living Acute Inflammatory polyradiculoneuropathy Acute MRSA (methicillin resistant Staphylococcus aureus) Acute UTI (urinary tract infection) Acute - ICD10 Problem Qualifiers (1) Impaired mobility and activities of daily living
[2016-04-23] MEDS: PATCH REMOVAL 1 EA PATCH TD SCH (20:59)
[2016-04-23] MEDS: traZODone 50 MG TAB PO SCH (21:53)
[2016-04-24] MEDS: PRAVASTATIN SODIUM 20 MG TAB PO SCH (07:57)
[2016-04-24] MEDS: IBUPROFEN 600 MG TAB PO PRN (07:57)
[2016-04-24] MEDS: ENOXAPARIN 40 MG/0.4 ML SYR SC SCH (07:57)
--- NOTE | 2016-04-24 12:38 | SOAPPROG ---
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 Improving s/p IVIG. Initial FIM 57 on 03/25/16; improved to 81 as of 04/01/16, to 86 as of 04/08/16, and to 89 as of 04/15/16. Continues to improve. Continue PT & OT. * Neuropathic symptoms B feet with loss of sensation: treatment related fluctuation s/p IVIG? D/W Dr. Lopez, [facility] [place] neurologist. Would be much more concerned if she had motor fluctuation; would readmit and consult with neuromuscular specialist. Advises continues observation. * Ankle swelling: suggested she address with OT re ankle positioning with ambulation. Cold pack PRN, as well as ibuprofen. * HTN/Orthostatic hypotension. Amlodipine (new medication) stopped 03/25/16; lisinopril stopped 03/26/15. No longer orthostatic and BP increasing since since meds were discontinued. If she becomes hypertensive (>140/90) will restart lisinopril. * L shoulder Pain: resolved. D/C lidocaine patch 04/24/16. * MRSA UTI: Doxycycline competed 03/30. Cont isolation precautions for one year since culture positive. No active Sx/SX of UTI * Urinary retention: Resolved, voiding completely. * N Bowel: incontinence has resolved. * Hyponatremia: resolved, no fluid restriction. * Nutrition: Taking adequate calories and protein. * Dyslipidemia: cont current meds * Insomnia: Using trazodone 50 mg QHS. Sleeping well. * DVT PPX: Cont enoxaparin until ambulatory or DC. * Lung nodule: to follow up with oncology on dc. Monitor clinically. * Adjustment to disabilities: pt notes some struggling with emotions, but not impairing her ability to participate in therapies. She is engaging with SW on the issue, and feels supported. no SI. Much improved, working hard. Will need to ascend stairs to reach the living floor of her home. Making good progress; anticipated discharge home 04/26/16. PCP is Alicja Johnson. Neurologist at [facility] [place] Crispin Lopez 04/24/16 12:35 Subjective: No complaints. Per nursing, refusing lidocaine patch. Numbness in feet persisting, but getting stronger. Objective: Vital Signs Temp Pulse Resp BP Pulse Ox 36.7 C 79 15 129/77 H 94 04/24/16 06:10 04/24/16 06:10 04/24/16 06:10 04/24/16 06:10 04/24/16 06:10 Laboratory Results 03/23/16 07:30 03/31/16 04:15 04/23/16 04/24/16 04/25/16 05:59 05:59 05:59 Intake Total 360 1480 690 Balance 360 1480 690 Physical Exam - Physical Exam General Appearance: WD/WN, alert, no apparent distress Respiratory: No respiratory distress, No accessory muscle use Skin: normal color, warm/dry Neuro/Psych: alert, normal mood/affect, oriented x 3, abnormal gait (Ambulating with PT using trekking poles.) ICD10 Worksheet Patient Problems: Problems Problem Status Onset Adenocarcinoma of lung Acute Hyponatremia Acute Impaired mobility and activities of daily living Acute Inflammatory polyradiculoneuropathy Acute MRSA (methicillin resistant Staphylococcus aureus) Acute UTI (urinary tract infection) Acute
[2016-04-24] MEDS: traZODone 50 MG TAB PO SCH (22:06)
[2016-04-24] MEDS: PATCH REMOVAL 1 EA PATCH TD SCH (22:08)
[2016-04-25] MEDS: PRAVASTATIN SODIUM 20 MG TAB PO SCH (11:13)
[2016-04-25] MEDS: ENOXAPARIN 40 MG/0.4 ML SYR SC SCH (11:13)
--- NOTE | 2016-04-25 14:57 | SOAPPROG ---
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 Improving s/p IVIG. Initial FIM 57 on 03/25/16; improved to 81 as of 04/01/16, to 86 as of 04/08/16, and to 89 as of 04/15/16; 99 as of 04/22/16. Continues to improve. Continue PT & OT. * Neuropathic symptoms B feet with loss of sensation: treatment related fluctuation s/p IVIG? D/W Dr. Lopez, [facility] [place] neurologist. Would be much more concerned if she had motor fluctuation; would readmit and consult with neuromuscular specialist. Advises continues observation. * Ankle swelling: suggested she address with OT re ankle positioning with ambulation. Cold pack PRN, as well as ibuprofen. * HTN/Orthostatic hypotension. Amlodipine (new medication) stopped 03/25/16; lisinopril stopped 03/26/15. No longer orthostatic and BP increasing since since meds were discontinued. If she becomes hypertensive (>140/90) will restart lisinopril. * L shoulder Pain: resolved. D/C lidocaine patch 04/24/16. * MRSA UTI: Doxycycline competed 03/30. Cont isolation precautions for one year since culture positive. No active Sx/SX of UTI * Urinary retention: Resolved, voiding completely. * N Bowel: incontinence has resolved. * Hyponatremia: resolved, no fluid restriction. * Nutrition: Taking adequate calories and protein. * Dyslipidemia: cont current meds * Insomnia: Using trazodone 50 mg QHS. Sleeping well. * DVT PPX: Cont enoxaparin until ambulatory or DC. * Lung nodule: to follow up with oncology on dc. Monitor clinically. * Adjustment to disabilities: pt notes some struggling with emotions, but not impairing her ability to participate in therapies. She is engaging with SW on the issue, and feels supported. no SI. Much improved, working hard. Will need to ascend stairs to reach the living floor of her home. Mrs. Bucio needs a front-wheeled walker. She has a mobility limitation that impairs one or more mobility-related ADLs in the home. She is able to use a walker afely. Functional mobility deficit cannot be resolved with a cane. PCP is Alicja Johnson. Neurologist at [facility] [place] Crispin Lopez 04/25/16 14:57 Subjective: Contiinues to have numbness in her feet. She can't feel them on the ground so she has to look down as she walks. Otherwise without complaint. Had home visit today which went well, though she has to walk sideways through some narrow doors in the home. Objective: Vital Signs Temp Pulse Resp BP Pulse Ox 36.6 C 97 16 118/89 H 94 04/25/16 11:10 04/25/16 11:10 04/25/16 11:10 04/25/16 11:10 04/25/16 11:10 Laboratory Results 03/23/16 07:30 03/31/16 04:15 04/24/16 04/25/16 04/26/16 05:59 05:59 05:59 Intake Total 1480 3040 840 Balance 1480 3040 840 Physical Exam - Physical Exam General Appearance: WD/WN, alert, no apparent distress Respiratory: No respiratory distress, No accessory muscle use Skin: normal color, warm/dry Neuro/Psych: alert, normal mood/affect, oriented x 3 ICD10 Worksheet Patient Problems: Problems Problem Status Onset Adenocarcinoma of lung Acute Hyponatremia Acute Impaired mobility and activities of daily living Acute Inflammatory polyradiculoneuropathy Acute MRSA (methicillin resistant Staphylococcus aureus) Acute UTI (urinary tract infection) Acute
--- NOTE | 2016-04-25 15:35 | SOAPPROG ---
SOAP Progress Note Assessment/Plan: Assessment: Called in by Dr. Ling. 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 She is also experiencing numbness in her fingertips and on the lateral sides of her 5th metacarpals and palms. She says her feet feel "hallow" and she is having difficulty walking. She has to look down to avoid falling and cannot store administrative assistant the ground. Guillermina, her case assistant requested acupuncture to see if it might help decrease the numbness in her feet. Acupuncture can reduce inflammation and improve blood flow and circulation to the extremities. Plan: Treatment: Auricular: [place] Acupuncture (BFA) Five acupuncture points in the ear, bilateral. Developed by Dr Crispin Huang to affect the OTOLARYNGOLOGY PHYSICIAN: Cingular gyrate, Point zero, Thalamus, [place] 2, Bailey Men. Scalp: DU 20-23 x 5 courtney: Relax the spine. Image cervical spine to sacrum. Right side: FADUMO 1-5: Lung meridian balances Bladder meridian. FADUMO 1 images heel to improve blood flow and circulation. Relax the paraspinal muscles, and calves. Engage the low back to help with proprioception and stability. Left side: Extra points: Mu Socrates and Gu Socrates, located on the palm of the hand, images heel, medial and lateral. Yates Tze and Yates Hsien, located on the palm, images heel, lateral (BL meridian), relaxes shoulder blades. FADUMO 7, 8, 9, 10 courtney points, image heel, improve blood flow and circulation. FADUMO 11, LI 1, PC 9, SJ 1, SI 1, HT 9: Arlene well points. Improve circulation to fingers and toes. Open up the meridians for acute numbness. This treatment chosen using the principles of Dr. Page's Balance Method. It has been explained to the patient that due to the chronic nature of this condition, a course of treatment (six to ten treatments) would be best to get the benefits of acupuncture. The goal is to help her nerves regenerate, improve her balance and strength. Exline were retained for fifty minutes. 04/25/16 15:19 Objective: Vital Signs Temp Pulse Resp BP Pulse Ox 36.6 C 97 16 118/89 H 94 04/25/16 11:10 04/25/16 11:10 04/25/16 11:10 04/25/16 11:10 04/25/16 11:10 Laboratory Results 03/23/16 07:30 03/31/16 04:15 04/24/16 04/25/16 04/26/16 05:59 05:59 05:59 Intake Total 1480 3040 840 Balance 1480 3040 840 ICD10 Worksheet Patient Problems: Problems Problem Status Onset Adenocarcinoma of lung Acute Hyponatremia Acute Impaired mobility and activities of daily living Acute Inflammatory polyradiculoneuropathy Acute MRSA (methicillin resistant Staphylococcus aureus) Acute UTI (urinary tract infection) Acute
[2016-04-25] MEDS: traZODone 50 MG TAB PO SCH (22:02)
[2016-04-25] MEDS: PATCH REMOVAL 1 EA PATCH TD SCH (22:09)
[2016-04-26] MEDS: PRAVASTATIN SODIUM 20 MG TAB PO SCH (08:49)
[2016-04-26] MEDS: IBUPROFEN 600 MG TAB PO PRN (08:49)
[2016-04-26] MEDS: ENOXAPARIN 40 MG/0.4 ML SYR SC SCH (08:50)
--- NOTE | 2016-04-26 10:40 | SOAPPROG ---
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 Improving s/p IVIG. Initial FIM 57 on 03/25/16; improved to 81 as of 04/01/16, to 86 as of 04/08/16, and to 89 as of 04/15/16; 99 as of 04/22/16. Continues to improve. Continue PT & OT. * Neuropathic symptoms B feet with loss of sensation: treatment related fluctuation s/p IVIG? D/W Dr. Lopez, [facility] [place] neurologist. Would be much more concerned if she had motor fluctuation; would readmit and consult with neuromuscular specialist. Advises continues observation. Has initiated acupuncture; no response after first treatment. * Ankle swelling: suggested she address with OT re ankle positioning with ambulation. Cold pack PRN, as well as ibuprofen. * HTN/Orthostatic hypotension. Amlodipine (new medication) stopped 03/25/16; lisinopril stopped 03/26/15. No longer orthostatic and BP increasing since since meds were discontinued. If she becomes hypertensive (>140/90) will restart lisinopril. * L shoulder Pain: resolved. D/C lidocaine patch 04/24/16. * MRSA UTI: Doxycycline competed 03/30. Cont isolation precautions for one year since culture positive. No active Sx/SX of UTI * Urinary retention: Resolved, voiding completely. * N Bowel: incontinence has resolved. * Hyponatremia: resolved, no fluid restriction. * Nutrition: Taking adequate calories and protein. * Dyslipidemia: cont current meds * Insomnia: Using trazodone 50 mg QHS. Sleeping well. * DVT PPX: D/C enoxaparin, LORETO greene, SCDs 04/27/16 as mobility is much improved and > 6 weeks since onset of symptoms. * Lung nodule: to follow up with oncology on dc. Monitor clinically. * Adjustment to disabilities: pt notes some struggling with emotions, but not impairing her ability to participate in therapies. She is engaging with SW on the issue, and feels supported. no SI. Much improved, working hard. Will need to ascend stairs to reach the living floor of her home. Mrs. Bucio needs a front-wheeled walker. She has a mobility limitation that impairs one or more mobility-related ADLs in the home. She is able to use a walker afely. Functional mobility deficit cannot be resolved with a cane. PCP is Alicja Johnson. Neurologist at [facility] [place] Crispin Lopez 04/26/16 10:38 Subjective: No complaints. Foot numbness unchanged. Trazodone helps sleep and wants to continue after discharge. Objective: Vital Signs Temp Pulse Resp BP Pulse Ox 36.8 C 78 16 121/76 H 93 04/26/16 07:37 04/26/16 07:37 04/26/16 07:37 04/26/16 07:37 04/26/16 07:37 Laboratory Results 03/23/16 07:30 03/31/16 04:15 04/25/16 04/26/16 04/27/16 05:59 05:59 05:59 Intake Total 3040 1140 Balance 3040 1140 Physical Exam - Physical Exam General Appearance: WD/WN, alert, no apparent distress Respiratory: No respiratory distress, No accessory muscle use Skin: normal color, warm/dry Neuro/Psych: alert, normal mood/affect, oriented x 3 ICD10 Worksheet Patient Problems: Problems Problem Status Onset Adenocarcinoma of lung Acute Hyponatremia Acute Impaired mobility and activities of daily living Acute Inflammatory polyradiculoneuropathy Acute MRSA (methicillin resistant Staphylococcus aureus) Acute UTI (urinary tract infection) Acute
[2016-04-26] MEDS: traZODone 50 MG TAB PO SCH (22:08)
[2016-04-26] MEDS: PATCH REMOVAL 1 EA PATCH TD SCH (22:11)
[2016-04-27] MEDS: PRAVASTATIN SODIUM 20 MG TAB PO SCH (09:16)
[2016-04-27] MEDS: IBUPROFEN 600 MG TAB PO PRN (09:17)
--- NOTE | 2016-04-27 12:15 | SOAPPROG ---
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 Improving s/p IVIG. Initial FIM 57 on 03/25/16; improved to 81 as of 04/01/16, to 86 as of 04/08/16, and to 89 as of 04/15/16; 99 as of 04/22/16. Progressed to I in room starting 04/26. Continue PT & OT. * Neuropathic symptoms B feet with loss of sensation: treatment related fluctuation s/p IVIG? D/W Dr. Lopez, [facility] neurologist. Would be much more concerned if she had motor fluctuation; would readmit and consult with neuromuscular specialist. Advises continues observation. Has initiated acupuncture; no response after first treatment. * Ankle swelling: suggested she address with OT re ankle positioning with ambulation. Cold pack PRN, as well as ibuprofen. * HTN/Orthostatic hypotension. Amlodipine (new medication) stopped 03/25/16; lisinopril stopped 03/26/15. No longer orthostatic and BP increasing since since meds were discontinued. If she becomes hypertensive (>140/90) will restart lisinopril. * L shoulder Pain: resolved. D/C lidocaine patch 04/24/16. * MRSA UTI: Doxycycline competed 03/30. Cont isolation precautions for one year since culture positive. No active Sx/SX of UTI * Urinary retention: Resolved, voiding completely. * N Bowel: incontinence has resolved. * Hyponatremia: resolved, no fluid restriction. * Nutrition: Taking adequate calories and protein. * Dyslipidemia: cont current meds * Insomnia: Using trazodone 50 mg QHS. Sleeping well. * DVT PPX: D/C enoxaparin, LORETO greene, SCDs 04/27/16 as mobility is much improved and > 6 weeks since onset of symptoms. * Lung nodule: to follow up with oncology on dc. Monitor clinically. * Adjustment to disabilities: pt notes some struggling with emotions, but not impairing her ability to participate in therapies. She is engaging with SW on the issue, and feels supported. no SI. Much improved, working hard. Will need to ascend stairs to reach the living floor of her home. Mrs. Bucio needs a front-wheeled walker. She has a mobility limitation that impairs one or more mobility-related ADLs in the home. She is able to use a walker afely. Functional mobility deficit cannot be resolved with a cane. PCP is Alicja Johnson. Neurologist at [facility] Crispin Lopez 04/27/16 12:14 Subjective: No complaints. Still has numbness infeet. Will have 2nd acupuncture treatment this afternoon. Has some R ankle swelling, no pain. Objective: Vital Signs Temp Pulse Resp BP Pulse Ox 36.7 C 87 16 111/74 94 04/26/16 19:51 04/26/16 19:51 04/26/16 19:51 04/26/16 19:51 04/26/16 19:51 Laboratory Results 03/23/16 07:30 03/31/16 04:15 04/26/16 04/27/16 04/28/16 05:59 05:59 05:59 Intake Total 1140 400 Balance 1140 400 Physical Exam - Physical Exam General Appearance: WD/WN, alert, no apparent distress Respiratory: normal breath sounds, No crackles, No rhonchi, No wheezing Cardiac/Chest: regular rate, rhythm, No edema Skin: normal color, warm/dry Neuro/Psych: alert, normal mood/affect, oriented x 3 ICD10 Worksheet Patient Problems: Problems Problem Status Onset Adenocarcinoma of lung Acute Hyponatremia Acute Impaired mobility and activities of daily living Acute Inflammatory polyradiculoneuropathy Acute MRSA (methicillin resistant Staphylococcus aureus) Acute UTI (urinary tract infection) Acute
--- NOTE | 2016-04-27 17:31 | SOAPPROG ---
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 Plan:Regulate and boost Qi in channels of feet, hands. Nourish Qi and Blood, invigorate Blood. Daily while in hospital. Follow up when home, if able to come to office, if not consider home visits. Treatment: LI 4, Sp 5,6,9,10, Elizabeth 3, St 36,41, GB 34,40,41, KI 3, Bafeng. Ear alyssa men, Pt zero 04/27/16 17:34 Subjective: Discussed with Gabino Acevedo her case and treatment done yesterday. Met with patient, discussed history, onset, changes. Had been improving. Specifically worsening in last week or 10 days. Numbness in feet and ankles, primarily, and fingertips. Walking is her primary concern. Able to do so since therapy, using a walker, and watching her feet. Right foot seems a bit more numb than L. Objective: Vital Signs Temp Pulse Resp BP Pulse Ox 36.7 C 87 16 111/74 94 04/26/16 19:51 04/26/16 19:51 04/26/16 19:51 04/26/16 19:51 04/26/16 19:51 Laboratory Results 03/23/16 07:30 03/31/16 04:15 04/26/16 04/27/16 04/28/16 05:59 05:59 05:59 Intake Total 1140 400 Balance 1140 400 Pulse seems relatively good, not remarkable. Tongue Dusky, dry. ICD10 Worksheet Patient Problems: Problems Problem Status Onset Adenocarcinoma of lung Acute Hyponatremia Acute Impaired mobility and activities of daily living Acute Inflammatory polyradiculoneuropathy Acute MRSA (methicillin resistant Staphylococcus aureus) Acute UTI (urinary tract infection) Acute
[2016-04-27] MEDS: traZODone 50 MG TAB PO SCH (22:14)
[2016-04-28] MEDS: IBUPROFEN 600 MG TAB PO PRN (08:15)
[2016-04-28] MEDS: PRAVASTATIN SODIUM 20 MG TAB PO SCH (08:15)
--- NOTE | 2016-04-28 14:51 | SOAPPROG ---
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 Improving s/p IVIG. Initial FIM 57 on 03/25/16; improved to 81 as of 04/01/16, to 86 as of 04/08/16, and to 89 as of 04/15/16; 99 as of 04/22/16. Progressed to I in room starting 04/26. Continue PT & OT. * Neuropathic symptoms B feet with loss of sensation: treatment related fluctuation s/p IVIG? D/W Dr. Lopez, [facility] neurolog[place]. Would be much more concerned if she had motor fluctuation; would readmit and consult with neuromuscular specialist. Advises continues observation. Has initiated acupuncture; no response after two treatments. * Ankle swelling: suggested she address with OT re ankle positioning with ambulation. Cold pack PRN, as well as ibuprofen. * HTN/Orthostatic hypotension. Amlodipine (new medication) stopped 03/25/16; lisinopril stopped 03/26/15. No longer orthostatic and BP increasing since since meds were discontinued. If she becomes hypertensive (>140/90) will restart lisinopril. * L shoulder Pain: resolved. D/C lidocaine patch 04/24/16. * MRSA UTI: Doxycycline competed 03/30. Cont isolation precautions for one year since culture positive. No active Sx/SX of UTI * Urinary retention: Resolved, voiding completely. * N Bowel: incontinence has resolved. * Hyponatremia: resolved, no fluid restriction. * Nutrition: Taking adequate calories and protein. * Dyslipidemia: cont current meds * Insomnia: Using trazodone 50 mg QHS. Sleeping well. * DVT PPX: D/C enoxaparin, LORETO greene, SCDs 04/27/16 as mobility is much improved and > 6 weeks since onset of symptoms. * Lung nodule: to follow up with oncology on dc. Monitor clinically. * Adjustment to disabilities: pt notes some struggling with emotions, but not impairing her ability to participate in therapies. She is engaging with SW on the issue, and feels supported. no SI. Much improved, working hard. Will need to ascend stairs to reach the living floor of her home. Mrs. Bucio needs a front-wheeled walker. She has a mobility limitation that impairs one or more mobility-related ADLs in the home. She is able to use a walker afely. Functional mobility deficit cannot be resolved with a cane. PCP is Alicja Johnson. Neurologist at [facility] Crispin Lopez Follow-up Oncologist Dr. Gayatri mackey lung nodule 05/01/14. 04/28/16 14:50 Subjective: No complaints. Feet are still numb, but not getting worse. Objective: Vital Signs Temp Pulse Resp BP Pulse Ox 36.6 C 93 18 110/77 93 04/28/16 08:00 04/28/16 08:00 04/28/16 08:00 04/28/16 08:00 04/28/16 08:00 Laboratory Results 03/23/16 07:30 03/31/16 04:15 04/27/16 04/28/16 04/29/16 05:59 05:59 05:59 Intake Total 400 1300 Balance 400 1300 Physical Exam - Physical Exam General Appearance: WD/WN, alert, no apparent distress Respiratory: No respiratory distress, No accessory muscle use Skin: normal color, warm/dry Neuro/Psych: alert, normal mood/affect, oriented x 3 ICD10 Worksheet Patient Problems: Problems Problem Status Onset Adenocarcinoma of lung Acute Hyponatremia Acute Impaired mobility and activities of daily living Acute Inflammatory polyradiculoneuropathy Acute MRSA (methicillin resistant Staphylococcus aureus) Acute UTI (urinary tract infection) Acute
[2016-04-28] MEDS: traZODone 50 MG TAB PO SCH (22:00)
[2016-04-29] MEDS: PRAVASTATIN SODIUM 20 MG TAB PO SCH (10:42)
[2016-04-29] MEDS: IBUPROFEN 600 MG TAB PO PRN (10:42)
--- NOTE | 2016-04-29 13:42 | SOAPPROG ---
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 Improving s/p IVIG. Initial FIM 57 on 03/25/16; improved to 81 as of 04/01/16, to 86 as of 04/08/16, and to 89 as of 04/15/16; 99 as of 04/22/16; 113 as of 04/29/16. Progressed to I in room starting 04/26/16. I for ADLs except S for shower transfer. S for stairs. Continue PT & OT. * Neuropathic symptoms B feet with loss of sensation: treatment related fluctuation s/p IVIG? D/W Dr. Lopez, [facility] [place] neurologist. Would be much more concerned if she had motor fluctuation; would readmit and consult with neuromuscular specialist. Advises continues observation. Has initiated acupuncture; no response after two treatments. * Ankle swelling: suggested she address with OT re ankle positioning with ambulation. Cold pack PRN, as well as ibuprofen. * HTN/Orthostatic hypotension. Amlodipine (new medication) stopped 03/25/16; lisinopril stopped 03/26/15. No longer orthostatic and BP increasing since since meds were discontinued. If she becomes hypertensive (>140/90) will restart lisinopril. * L shoulder Pain: resolved. D/C lidocaine patch 04/24/16. * MRSA UTI: Doxycycline competed 03/30. Cont isolation precautions for one year since culture positive. No active Sx/SX of UTI * Urinary retention: Resolved, voiding completely. * N Bowel: incontinence has resolved. * Hyponatremia: resolved, no fluid restriction. * Nutrition: Taking adequate calories and protein. * Dyslipidemia: cont current meds * Insomnia: Using trazodone 50 mg QHS. Sleeping well. * DVT PPX: D/C enoxaparin, LORETO greene, SCDs 04/27/16 as mobility is much improved and > 6 weeks since onset of symptoms. * Lung nodule: to follow up with oncology on dc. Monitor clinically. * Adjustment to disabilities: pt notes some struggling with emotions, but not impairing her ability to participate in therapies. She is engaging with SW on the issue, and feels supported. no SI. Much improved, working hard. Will need to ascend stairs to reach the living floor of her home. Mrs. Bucio needs a front-wheeled walker. She has a mobility limitation that impairs one or more mobility-related ADLs in the home. She is able to use a walker afely. Functional mobility deficit cannot be resolved with a cane. Attended staffing, 15 min. D/W case mgmt, nursing, PT, OT. Plan for discharge home with tomorrow. PCP is Alicja Johnson. Neurologist at [facility] [place] Crispin Lopez Follow-up Oncologist Dr. Gayatri mackey lung nodule 05/01/14. 04/29/16 13:43 Subjective: No complaints. Walking better and trying to not watch feet when she walks. Denies pain, dyspnea, f/c. Objective: Vital Signs Temp Pulse Resp BP Pulse Ox 36.4 C 95 16 114/75 98 04/29/16 08:00 04/29/16 08:00 04/29/16 08:00 04/29/16 08:00 04/29/16 08:00 Laboratory Results 03/23/16 07:30 03/31/16 04:15 04/28/16 04/29/16 04/30/16 05:59 05:59 05:59 Intake Total 1300 1500 Balance 1300 1500 - Time Spent With Patient Time Spent With Patient: Greater than 35 minutes floor time today, including more than 50% of time in coordination of care during staffing meeting, and counseling patient. Physical Exam - Physical Exam General Appearance: WD/WN, alert, no apparent distress Respiratory: No respiratory distress, No accessory muscle use Skin: normal color, warm/dry Neuro/Psych: alert, normal mood/affect, oriented x 3, other (Self-propelling wheelchair in silver.) ICD10 Worksheet Patient Problems: Problems Problem Status Onset Adenocarcinoma of lung Acute Hyponatremia Acute Impaired mobility and activities of daily living Acute Inflammatory polyradiculoneuropathy Acute MRSA (methicillin resistant Staphylococcus aureus) Acute UTI (urinary tract infection) Acute
--- NOTE | 2016-04-29 18:01 | SOAPPROG ---
SOAP Progress Note Assessment/Plan: Assessment: Called in by Dr. Ling. 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 She is also experiencing numbness in her fingertips and on the lateral sides of her 5th metacarpals and palms. She says her feet feel "hallow" and she is having difficulty walking. She has to look down to avoid falling and cannot automotive service manager the ground. Guillermina, her hospice case manager requested acupuncture to see if it might help decrease the numbness in her feet. Acupuncture can reduce inflammation and improve blood flow and circulation to the extremities. Plan: Treatment: Auricular: [place] [facility] (BFA) Five acupuncture points in the ear, bilateral. Developed by Dr Crispin Huang to affect the RIVET HEATER: Cingular gyrate, Point zero, Thalamus, [place] 2, Bailey Men. Scalp: DU 20-23 x 5 courtney: Relax the spine. Image cervical spine to sacrum. Right side: FADUMO 1-5: Lung meridian balances Bladder meridian. FADUMO 1 images heel to improve blood flow and circulation. Relax the paraspinal muscles, and calves. Engage the low back to help with proprioception and stability. Left side: Extra points: Mu Socrates and Gu Socrates, located on the palm of the hand, images heel, medial and lateral. Yates Tze and Yates Hsien, located on the palm, images heel, lateral (BL meridian), relaxes shoulder blades. FADUMO 7, 8, 9, 10 courtney points, image heel, improve blood flow and circulation. FADUMO 11, LI 1, PC 9, SJ 1, SI 1, HT 9: Arlene well points. Improve circulation to fingers and toes. Open up the meridians for acute numbness. This treatment chosen using the principles of Dr. Page's Balance Method. It has been explained to the patient that due to the chronic nature of this condition, a course of treatment (six to ten treatments) would be best to get the benefits of acupuncture. The goal is to help her nerves regenerate, improve her balance and strength. Claridge were retained for fifty minutes. 04/25/16 15:19 04/29/16 17:59 Plan: Treatment: Auricular: [place] [facility] (BFA) Five acupuncture points in the ear, bilateral. Developed by Dr Crispin Huang to affect the RIVET HEATER: Cingular gyrate, Point zero, Thalamus, [place] 2, Bailey Men. Scalp: DU 20-23 x 5 courtney: Relax the spine. Image cervical spine to sacrum. Right side: Extra points: Robin Socrates and Emiliano Socrates, located on the palm of the hand, images heel, medial and lateral. Yates Tze and [place], located on the palm, images heel, lateral (BL meridian), relaxes shoulder blades. FADUMO 7, 8, 9, 10 courtney points, image heel, improve blood flow and circulation. FADUMO 11, LI 1, PC 9, SJ 1, SI 1, HT 9: Arlene well points. Improve circulation to fingers and toes. Open up the meridians for acute numbness. Left side: FADUMO 1-5: Lung meridian balances Bladder meridian. FADUMO 1 images heel to improve blood flow and circulation. Relax the paraspinal muscles, and calves. Engage the low back to help with proprioception and stability. This treatment chosen using the principles of Dr. Page's Balance Method. It has been explained to the patient that due to the chronic nature of this condition, a course of treatment (six to ten treatments) would be best to get the benefits of acupuncture. The goal is to help her nerves regenerate, improve her balance and strength. Claridge were retained approximately fifty minutes. Objective: Vital Signs Temp Pulse Resp BP Pulse Ox 36.4 C 95 16 114/75 98 04/29/16 08:00 04/29/16 08:00 04/29/16 08:00 04/29/16 08:00 04/29/16 08:00 Laboratory Results 03/23/16 07:30 03/31/16 04:15 04/28/16 04/29/16 04/30/16 05:59 05:59 05:59 Intake Total 1300 1500 Balance 1300 1500 ICD10 Worksheet Patient Problems: Problems Problem Status Onset Adenocarcinoma of lung Acute Hyponatremia Acute Impaired mobility and activities of daily living Acute Inflammatory polyradiculoneuropathy Acute MRSA (methicillin resistant Staphylococcus aureus) Acute UTI (urinary tract infection) Acute
[2016-04-29] MEDS: traZODone 50 MG TAB PO SCH (22:06)
[2016-04-30] MEDS: IBUPROFEN 600 MG TAB PO PRN (07:02)
[2016-04-30] MEDS: PRAVASTATIN SODIUM 20 MG TAB PO SCH (07:02)
[2016-04-30 07:21] VITALS: BP 113/78; PULSE 80; RESP 16; TEMP 98.3; O2SAT 93
--- NOTE | 2016-04-30 15:33 | GDS ---
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 CONSULTATIONS: There were none. COMPLICATIONS: There were none. PROCEDURES: There were none. HISTORY AND HOSPITAL COURSE: Mrs. Bucio was evaluated at [facility] several days after a prior evaluation at [facility]. Initially, she had numbness, weakness, and unsteadiness. Her symptoms progressed. She was admitted to the [facility] and diagnosed with Guillain-Rhinebeck syndrome. There had been a preceding illness with upper respiratory symptoms and diarrhea. She received 5 doses of IVIG from March 11 through March 15 , and noticed a gradual improvement in her strength and sensation. Her hospital stay was complicated by the finding of a spiculated left upper lobe lung mass. A biopsy was done and the result was adenocarcinoma. However, she was not considered to have a paraneoplastic polyradiculopathy. There was syndrome of inappropriate ADH secretion which resolved with fluid restriction, and she arrived on a fluid restriction of 1.25 to1.5 L per day. She had steady improvement in function in rehabilitation. Her initial Functional [place] Measure (FIM) was 57 on 03/25/2016. This is consistent with needing assistance in all areas of self-care and mobility. A week later, it improved to 81, which is consistent with low-level assisted living facility care. She still was needing assistance with transfers and mobility. By 2016, her FIM was 113, which is consistent with independent living. She was independent in her room starting 04/26/2016. She was independent with activities of daily living, except she needed supervision for shower transfers and for stairs. Although she had a steady recovery in her strength, she developed neuropathic symptoms bilaterally in her feet with loss of sensation, especially on the heels. This was discussed with Dr. Lopez, her neurologist at the [facility]. He was not concerned about recurrent sensory symptoms as long as her strength continued to improve and it did, so she was not referred back to the [place], but continued her rehabilitation stay. She had 2 acupuncture treatments as an attempt to improve her neuropathic symptoms, but has not had a response as of the day of discharge. She had been hypertensive prior to the onset of the Guillain-Rhinebeck syndrome. She was hypotensive and orthostatic on the inpatient behavioral health unit. Amlodipine and lisinopril were discontinued. Her blood pressure was not hypertensive during the rest of her stay. She had had a UTI with methicillin-resistant Staphylococcus aureus, likely due to being catheterized in the acute care hospital and was treated with a course of doxycycline. The antibiotic was completed on 03/30/2016. She had no recurrent symptoms. Hyponatremia resolved over time and her fluid restriction was discontinued. She had insomnia, which responded well to trazodone 50 mg q.h.s. As her mobility improved, DVT prophylaxis with enoxaparin, LORETO hose, and sequential compression devices was discontinued on 04/27/2016. LABS AND STUDIES DURING HER STAY: On 03/23/2016, her CBC was overall within normal limits. She had a slightly low red blood cell count and a slightly low mean platelet volume. Serum chemistry was consistent with mild dehydration with a BUN of 24 and creatinine of 0.5 on 03/25/2016. Her fluid restriction was discontinued and several days later on 03/30/2016, renal function and electrolytes were within normal limits with the exception of a slightly low creatinine at 0.5. PHYSICAL EXAM ON THE DAY OF DISCHARGE: VITALS: Blood pressure is 113/78, heart rate is 80, respiratory rate is 16, oxygen saturation is 93% on room air, temperature is 36.8 degrees centigrade. GENERAL: This is a well-nourished, well-developed woman sitting in a wheelchair, cooperative, and in no acute distress. HEENT: Extraocular movements are intact. Mucous membranes are moist. Dentition is in good condition. NECK: Supple. HEART: There is a regular rate and rhythm with no murmurs, rubs, or gallops. LUNGS: Clear to auscultation bilaterally. ABDOMEN: Soft, nontender, nondistended with normoactive bowel sounds. EXTREMITIES: There is no cyanosis, clubbing, or edema. NEUROLOGIC: She has been observed ambulating in the silver with a front- wheeled walker independently and not needing to look at her feet. She is alert and oriented x3. Cranial nerves 2-12 are grossly intact. Sensation is reduced to light touch, but present to deep palpation on her feet, especially over her heels and posterior plantar foot. DISCHARGE PLAN: Condition upon discharge is good. Activity is ad orquidea. Diet is regular. Date of next appointment: She is to follow up with oncologist, Dr. Mendieta, regarding her lung nodule on 05/01/2016. She is to follow up with neurologist, Crispin Lopez at the [facility] , within 1-2 weeks and with her primary care provider, Dr. Johnson, within 1-2 weeks. ISSUES TO BE ADDRESSED AT FOLLOWUP: 1. Functional status. She will continue physical and occupational therapy at home, and issues of functional status can be addressed further with her primary care provider. 2. Guillain-Rhinebeck syndrome with a recurring sensory component, but improving in terms of motor strength. Follow up with Dr. Lopez at [facility]. 3. Lung nodule. Follow up with Dr. Mendieta with [facility]. 4. History of hypertension, now normotensive on no medications. She can follow up on this with her primary care provider. Copy requested to: Dr. Crispin Gilbert Dr. [facility] /[id number]/MODL MTDD
== END 2016-04-30 13:59 | disposition home health service (06) | DRG 95 ==
LOC: BREH 03-22 14:37
PROVIDERS: ADMIT Internal Medicine; ATTEND Internal Medicine
PROC: F07M3ZZ Motor Function Treatment of Musculoskeletal System - Whole Body (ICD-10-PCS; principal; 2016-03-22)
PROC: F0636ZZ Communicative/Cognitive Integration Skills Treatment of Neurological System - Whole Body (ICD-10-PCS; principal; 2016-03-22)
DX: G61.0 Guillain-Barre syndrome (principal); E87.1 Hypo-osmolality and hyponatremia; C34.90 Malignant neoplasm of unspecified part of unspecified bronchus or lung; T83.518D Infection and inflammatory reaction due to other urinary catheter, subsequent encounter; B95.62 Methicillin resistant Staphylococcus aureus infection as the cause of diseases classified elsewhere; I10 Essential (primary) hypertension; E78.5 Hyperlipidemia, unspecified; M25.512 Pain in left shoulder; G47.00 Insomnia, unspecified; R33.9 Retention of urine, unspecified; R15.9 Full incontinence of feces; I95.1 Orthostatic hypotension
CPT/HCPCS: 97110-GO; 97110-GP; 97112-GO; 97112-GP; 97116-GP; 97140-GO; 97140-GP; 97162-GP; 97166-GO; 97530-GO; 97530-GP; 97535-GO; 99366-GO; J1650